=== PATIENT | female | born 1930 | race Hispanic/Latino ===

== ENCOUNTER 2016-08-16 10:44 | Inpatient (IN) | payer MEDICARE ==
--- NOTE | 2016-08-16 10:57 | ED PDOC ---
Arrival/HPI - General Time Seen by Provider: 08/16/16 10:55 - History of Present Illness Narrative History of Present Illness (Text): 08/16/16 10:57 Past Medical History - Past History Past History: No Previous - Infectious Disease Hx of Infectious Diseases: None - Tetanus Immunization Tetanus Immunization: Unknown - Cardiac Hx Hypertension: Yes - Pulmonary Hx Chronic Obstructive Pulmonary Disease (COPD): Yes - Neurological Hx Paralysis: No - HEENT Hx Cataracts: Yes (rt eye) - Hematological/Oncological Hx Blood Transfusions: Yes Hx Blood Transfusion Reaction: No - Musculoskeletal/Rheumatological Hx Falls: Yes - Gastrointestinal Hx Gastrointestinal Disorders: Yes Other/Comment: hx ulcerative colitis - Psychiatric Hx Substance Use: No Other/Comment: dementia - Anesthesia Hx Anesthesia Reactions: No Hx Malignant Hyperthermia: No - Suicidal Assessment Feels Threatened In Home Enviroment: No Family/Social History Smoking Status: Former Smoker Hx Alcohol Use: No Hx Substance Use: No Allergies/Home Meds Allergies/Adverse Reactions: Allergies Penicillins Allergy (Verified 01/28/16 10:32) RASH Home Medications: Home Meds Medication Instructions Recorded Confirmed Atenolol 50 mg PO [facility] 11/11/11 08/26/14 Atorvastatin Calcium 40 mg PO 11/11/11 08/26/14 Bimatoprost [Lumigan] 1 drop RIGHTEYE QA 11/11/11 08/26/14 Buspirone Hydrochloride [Buspar] 15 mg PO BID 11/11/11 08/26/14 Donepezil Hydrochloride 10 mg PO 11/11/11 08/26/14 Mesalamine [Lialda] 4 tab PO DAILY 11/11/11 08/26/14 Niacin [Niaspan] 500 mg PO 11/11/11 08/26/14 Vit B12/Lmefolate Ca/Vit B6/B2 1 tab PO HS 11/11/11 08/26/14 [Cerefolin Caplet] Aspirin 81 mg PO HS 02/14/14 08/26/14 Dextromethorphan HBr/Quinidine 1 cap PO BID 02/14/14 08/26/14 [Nuedexta 20-10 mg Capsule] Escitalopram [Lexapro] 20 mg PO HS 02/14/14 08/26/14 Memantine [Namenda] 28 mg PO BID 06/12/14 08/26/14 Fluconazole [Diflucan] 100 mg PO DAILY 07/31/14 08/26/14 Omeprazole 40 mg PO DAILY 07/31/14 08/26/14 Medical Decision Making ED Course and Treatment: 08/16/16 10:57 Disposition/Present on Arrival - Present on Arrival History of DVT/PE: No History of Uncontrolled Diabetes: No Urinary Catheter: No History Surgical Site Infection Following: None
[2016-08-16 11:01] VITALS: BMI 20.7
[2016-08-16] MEDS ORDERED: Vancomycin 1gm in NS 250ml 250 ML IVPB STA (11:20)
[2016-08-16] MEDS ORDERED: Sodium Chloride 0.9% 1,000 ML IV ONE (11:20)
--- NOTE | 2016-08-16 12:15 | RAD ---
HISTORY: Sepsis Patient COMPARISON: 08/26/2014 FINDINGS: LUNGS: Ill-defined opacity in the upper right lincoln thorax and right parahilar. Suspicious for pneumonia. No other abnormal opacity elsewhere. PLEURA: No significant pleural effusion identified, no pneumothorax apparent. CARDIOVASCULAR: Normal. OSSEOUS STRUCTURES: No significant abnormalities. VISUALIZED UPPER ABDOMEN: Normal. OTHER FINDINGS: None. IMPRESSION: Opacity right upper lincoln thorax and right parahilar region. Suspicious for pneumonia.
[2016-08-16] MEDS ORDERED: cefTRIAXone 1 gm 100 ML IV STA (12:26)
--- NOTE | 2016-08-16 12:32 | ED PDOC ---
Arrival/HPI - General Chief Complaint: Weakness/Neurological Deficit Time Seen by Provider: 08/16/16 10:55 Historian: Patient, Other (Civilian Technician/Roommate) - History of Present Illness Narrative History of Present Illness (Text): 08/16/16 12:28 86-year-old female with a past medical history that includes dementia, ulcerative colitis, coronary artery disease, and depression presents the emergency department with fever and generalized weakness for one day. Patient's director of orthopedics/roommate states that she has a history of dementia, but is acting appropriately and is at her baseline mental status at this time. Patient denies any chest pain or shortness of breath. No other complaints. Time/Duration: 24 hours Symptom Onset: Gradual Symptom Course: Unchanged Modifying Factors (Text): None Associated Symptoms (Text): None Past Medical History - Provider Review Nursing Documentation Reviewed: Yes - Past History Past History: No Previous - Infectious Disease Hx of Infectious Diseases: None - Tetanus Immunization Tetanus Immunization: Unknown - Reproductive Menopause: Yes - Cardiac Hx Cardiac Disorders: Yes Hx Hypertension: Yes - Pulmonary Hx Chronic Obstructive Pulmonary Disease (COPD): Yes - Neurological Hx Neurological Disorder: Yes Hx Dementia: Yes Hx Paralysis: No - HEENT Hx Cataracts: Yes (rt eye) - Hematological/Oncological Hx Blood Transfusions: Yes Hx Blood Transfusion Reaction: No - Musculoskeletal/Rheumatological Hx Falls: Yes - Gastrointestinal Hx Gastrointestinal Disorders: Yes Other/Comment: hx ulcerative colitis - Psychiatric Hx Substance Use: No Other/Comment: dementia - Anesthesia Hx Anesthesia Reactions: No Hx Malignant Hyperthermia: No - Suicidal Assessment Feels Threatened In Home Enviroment: No Family/Social History - Physician Review Nursing Documentation Reviewed: Yes Family/Social History: Unknown Family HX Smoking Status: Former Smoker Hx Alcohol Use: No Hx Substance Use: No Allergies/Home Meds Allergies/Adverse Reactions: Allergies Penicillins Allergy (Verified 08/16/16 11:06) RASH Home Medications: Home Meds Medication Instructions Recorded Confirmed Atenolol 50 mg PO QAM 11/11/11 08/26/14 Atorvastatin Calcium 40 mg PO 11/11/11 08/26/14 Bimatoprost [Lumigan] 1 drop RIGHTEYE QAM 11/11/11 08/26/14 Buspirone Hydrochloride [Buspar] 15 mg PO BID 11/11/11 08/26/14 Donepezil Hydrochloride 10 mg PO 11/11/11 08/26/14 Mesalamine [Lialda] 4 tab PO DAILY 11/11/11 08/26/14 Niacin [Niaspan] 500 mg PO HS 11/11/11 08/26/14 Vit B12/Lmefolate Ca/Vit B6/B2 1 tab PO HS 11/11/11 08/26/14 [Cerefolin Caplet] Aspirin 81 mg PO HS 02/14/14 08/26/14 Dextromethorphan HBr/Quinidine 1 cap PO BID 02/14/14 08/26/14 [Nuedexta 20-10 mg Capsule] Escitalopram [Lexapro] 20 mg PO HS 02/14/14 08/26/14 Memantine [Namenda] 28 mg PO BID 06/12/14 08/26/14 Fluconazole [Diflucan] 100 mg PO DAILY 07/31/14 08/26/14 Omeprazole 40 mg PO DAILY 07/31/14 08/26/14 Review of Systems - Review of Systems Systems not reviewed;Unavailable: Dementia Physical Exam - Physical Exam Narrative Physical Exam (Text): Physical exam Patient appears age appropriate in no distress, speaking full sentences without difficulty - Systems Exam Head: Present: Atraumatic, Normocephalic Pupils: Present: PERRL Extroacular Muscles: Present: EOMI Conjunctiva: Present: Normal Mouth: Present: Moist Mucous Membranes Neck: Present: Normal Range of Motion. No: MIDLINE TENDERNESS, Paraspinal Tenderness Respiratory/Chest: Present: Clear to Auscultation, Good Air Exchange. No: Respiratory Distress, Accessory Muscle Use, Tachypneic Cardiovascular: Present: Regular Rate and Rhythm, Normal S1, S2, Peripheal Pulses Present. No: Murmurs Abdomen: Present: Normal Bowel Sounds. No: Tenderness, Distention, Peritoneal Signs, Rebound, Guarding Back: Present: Normal Inspection. No: Midline Tenderness, Paraspinal Tenderness Upper Extremity: Present: Normal Inspection. No: Cyanosis, Edema Lower Extremity: Present: Normal Inspection. No: Edema Neurological: Present: GCS=15, Speech Normal, cranial nerves II through XII fully intact with no cerebellar abnormality, neurosensory fully intact. No focal neurological deficits. Skin: Present: Warm, Dry, Normal Color. No: Rashes Lymphatic: Present: OX3, NI, NC Psychiatric: Present: Alert, not agitated Vital Signs Reviewed: Yes Vital Signs Temp Pulse Resp BP Pulse Ox 08/16/16 13:59 97 H 16 144/79 97 08/16/16 12:41 98 F 86 30 H 136/64 99 08/16/16 11:01 102.9 F H 110 H 20 161/86 H 97 Temperature: Febrile Blood Pressure: Hypertensive Pulse: Tachycardic Respiratory Rate: Normal Appearance: Positive for: Non-Toxic, Comfortable Pain Distress: None Mental Status: No: Agitated, Lethargic Medical Decision Making ED Course and Treatment: 08/16/16 12:30 Elderly female with fever and weakness. No acute findings on physical examination. Patient is febrile and hypertensive, with no focal neurological deficits. Differential includes but not limited to: Pneumonia versus UTI versus influenza Prior visits: Patient's previous medical records reviewed. Patient was seen in August 2014 for confusion and multiple falls and admitted for rhabdo. Patient's chest x-ray shows no cardiomegaly, no effusions. Right upper lobar infiltrate noted. Interpreted by me. EKG interpreted by ER physician. Normal sinus. No ST-segment elevations. Normal intervals. Fluids and antibiotics ordered. Patient will be admitted for IV antibiotics and further evaluation. 08/16/16 13:46 seen in the ER by Dr. Rosas, agrees with tele admission pt in no resp distress, RR not 30, aware of and agrees with plan 08/16/16 14:35 pt has positive troponin, denies cp or sob. EKG has no changes vs previous asa ordered Dr. Lo contacted, awaiting callback 08/16/16 14:[address] Rhodes, plan for asa and lovenox - Lab Interpretations Lab Results: 08/16/16 12:40 08/16/16 13:22 Lab Results 08/16/16 13:22: Sodium 141, Potassium 3.1 L, Chloride 109, Carbon Dioxide 20 L, Anion Gap 15, BUN 11, Creatinine 0.7, Est GFR ( Amer) > 60, Est GFR (Non- Af Amer) > 60, Random Glucose 80, Calcium 8.2 L, Phosphorus 2.5, Magnesium 1.2 L , Total Bilirubin 0.8, AST 24, ALT 12, Alkaline Phosphatase 86, Troponin I 0.61 H* D, Total Protein 6.1, Albumin 3.3, Globulin 2.8, Albumin/Globulin Ratio 1.2 08/16/16 12:46: PT 10.9, INR 1.01, APTT 28.5 08/16/16 12:40: WBC 14.0 H D, RBC 3.29 L, Hgb 11.3 L, Hct 33.7 L, MCV 102.4, MCH 34.3, MCHC 33.5, RDW 13.9, Plt Count 231, MPV 10.1, Gran % 88.4 H, Lymph % ( Auto) 4.4 L, Humphreys % (Auto) 7.1 H, Eos % (Auto) 0.0 L, Baso % (Auto) 0.1, Gran # 12.38 H, Lymph # 0.6 L, Humphreys # 1.0 H, Eos # 0.0, Baso # 0.02 08/16/16 12:38: pO2 50, VBG pH 7.33, VBG pCO2 37.0 L, VBG HCO3 19.5 L, VBG Total CO2 20.6 L, VBG O2 Sat (Calc) 87.5 H, VBG Base Excess -5.8 L, VBG Potassium 3.2 L, Glucose 93, Lactate 1.1, FiO2 21.0, Sodium 143.0, Chloride 110.0 H, Venous Blood Potassium 3.2 L - RAD Interpretation Radiology Orders: 08/16/16 11:20 CHEST PORTABLE [RAD] Stat - Medication Orders Current Medication Orders: Acetaminophen (Tylenol 325mg Tab) 650 mg PO Q6H PRN PRN Reason: Fever >100.5 F Enoxaparin Sodium (Lovenox) 50 mg SC STAT STA PRN Reason: Protocol Stop: 08/16/16 14:40 Magnesium Sulfate 2 gm/ Sodium (Chloride) 104 mls @ 102 mls/hr IVPB ONCE ONE Stop: 08/16/16 15:33 Discontinued Medications Acetaminophen (Tylenol 325mg Tab) 975 mg PO ONCE PRN PRN Reason: Fever >100.4 F Stop: 08/16/16 11:21 Aspirin (Aspirin Chewable) 324 mg PO STAT STA Stop: 08/16/16 14:33 Sodium Chloride (Sodium Chloride 0.9%) 1,000 mls @ 2,000 mls/hr IV .Q30M ONE Stop: 08/16/16 11:49 Last Admin: 08/16/16 12:43 Dose: 2,000 MLS/HR eMAR Start Stop Document 08/16/16 12:43 HI (Rec: 08/16/16 12:43 AL [id number]) Intravenous Solution Start Date 08/16/16 Start Time 12:43 Vancomycin HCl (Vancomycin 1gm) 250 mls @ 167 mls/hr IVPB STAT STA PRN Reason: Protocol Stop: 08/16/16 12:49 Last Admin: 08/16/16 12:43 Dose: 167 MLS/HR eMAR Start Stop Document 08/16/16 12:43 HI (Rec: 08/16/16 12:43 HI [id number]) Intravenous Solution Start Date 08/16/16 Start Time 12:43 Ceftriaxone Sodium (Rocephin 1 Gram Ivpb) 100 mls @ 200 mls/hr IV STAT STA PRN Reason: Protocol Stop: 08/16/16 12:55 Last Admin: 08/16/16 14:33 Dose: 200 MLS/HR eMAR Start Stop Document 08/16/16 14:33 HI (Rec: 08/16/16 14:33 HI [id number]) Intravenous Solution Start Date 08/16/16 Start Time 14:33 Potassium Chloride (K-Dur 20 Meq Er Tab) 40 meq PO STAT STA Stop: 08/16/16 14:33 - Scribe Statement The provider has reviewed the documentation as recorded by the Giana Nino Provider Scribe Attestation: All medical record entries made by the Giana were at my direction and personally dictated by me. I have reviewed the chart and agree that the record accurately reflects my personal performance of the history, physical exam, medical decision making, and the department course for this patient. I have also personally directed, reviewed, and agree with the discharge instructions and disposition. Disposition/Present on Arrival - Present on Arrival Any Indicators Present on Arrival: No History of DVT/PE: No History of Uncontrolled Diabetes: No Urinary Catheter: No History of Decub. Ulcer: No History Surgical Site Infection Following: None - Disposition Have Diagnosis and Disposition been Completed?: Yes Diagnosis: Pneumonia Disposition: HOSPITALIZED Disposition Time: 12:32 Patient Plan: Admission Patient Problems: Current Active Problems Problem Status Diagnosed Pneumonia Acute Condition: FAIR
[2016-08-16 12:49] LABS: ADD MANUAL DIFF? NO
[2016-08-16 12:50] LABS: VENOUS BLOOD GAS BASE EXCESS -5.8 mmol/L (0.0-2.0); VENOUS BLOOD PH 7.33 (7.32-7.43)
[2016-08-16 12:53] LABS: BASO # 0.02 K/mm3 (0.0-2.0); BASO % 0.1 % (0.0-3.0); GRAN # 12.38 (1.4-6.5); GRAN % 88.4 % (50.0-68.0); HEMATOCRIT 33.7 % (36.0-48.0); LYMPH # 0.6 (1.2-3.4); LYMPH % 4.4 % (22.0-35.0); MEAN CELL VOLUME 102.4 fL (80.0-105.0); MEAN CORPUSCULAR HEMOGLOBIN 34.3 pg (25.0-35.0); MEAN CORPUSCULAR HGB CONC 33.5 g/dl (31.0-37.0); MEAN PLATELET VOLUME 10.1 fl (7.0-11.0); MONO % 7.1 % (1.0-6.0); PLATELET COUNT 231 10^3/uL (120.0-450.0); RED CELL DISTRIBUTION WIDTH 13.9 % (11.5-14.5)
[2016-08-16 13:04] LABS: INR 1.01 (0.93-1.08); PARTIAL THROMBOPLASTIN TIME 28.5 Seconds (23.7-30.8)
[2016-08-16 13:43] LABS: ALB/GLOB RATIO 1.2 (1.1-1.8); ALKALINE PHOSPHATASE 86 U/L (38-133); ALT/SGPT 12 U/L (7-56); AST/SGOT 24 U/L (15-39); BILIRUBIN,TOTAL 0.8 mg/dL (0.2-1.3); BLOOD UREA NITROGEN 11 mg/dL (7-21); CALCIUM 8.2 mg/dL (8.4-10.5); CARBON DIOXIDE 20 mmol/L (21-33); CHLORIDE 109 mmol/L (95-110); GFR AFRICAN-AMERICAN > 60; GLUCOSE,RANDOM 80 mg/dL (70-110); MAGNESIUM 1.2 mg/dL (1.7-2.2); PHOSPHOROUS 2.5 mg/dL (2.5-4.5); POTASSIUM 3.1 mmol/L (3.6-5.0); SODIUM 141 mmol/L (132-148); TOTAL PROTEIN 6.1 g/dL (5.8-8.3)
[2016-08-16 14:24] LABS: TROPONIN I 0.61 ng/mL
[2016-08-16 14:29] LABS: URINE BILIRUBIN SMALL (NEGATIVE); URINE BLOOD NEGATIVE (NEGATIVE); URINE GLUCOSE (UA) NEGATIVE (NEGATIVE); URINE KETONE 40 mg/dL (NEGATIVE); URINE LEUKOCYTE ESTERASE TRACE Leu/uL (NEGATIVE); URINE PROTEIN 100 mg/dL (<30 mg/dL); URINE UROBILINOGEN 0.2 E.U./dL (<1 E.U./dL)
[2016-08-16 14:30] LABS: URINE APPEARANCE TURBID (CLEAR); URINE COLOR YELLOW (YELLOW)
[2016-08-16] MEDS ORDERED: Potassium Chloride 20 mEq ER Tab PO STA (14:32)
[2016-08-16] MEDS ORDERED: Magnesium Sulfate 2 GM in Sodium Chloride 0.9% 100 ML IVPB ONE (14:32)
[2016-08-16] MEDS ORDERED: Enoxaparin 60 mg Syringe SC STA (14:39)
[2016-08-16 14:49] LABS: URINE BACTERIA MANY (NEG); URINE RBC NEGATIVE /hpf (0-2)
[2016-08-16] MEDS ORDERED: Iodixanol 320 MG/ML 100 ML BOTTLE IV ONE (14:50)
--- NOTE | 2016-08-16 15:06 | CARD ---
APPROVED REPORT EKG Measurement Heart [id number] <Conclusion> Normal sinus rhythm Nonspecific T wave abnormality Abnormal ECG
--- NOTE | 2016-08-16 15:50 | CT ---
PROCEDURE: CT Chest with contrast (Pulmonary Angiogram) HISTORY: r/o PE COMPARISON: None available. TECHNIQUE: Axial computed tomography images were obtained of the chest in the pulmonary arterial phase of enhancement. Coronal and sagittal reformatted images were created and reviewed. Intravenous contrast dose: 100 cc of Visipaque Radiation dose: Total exam DLP = 262 mGy-cm. FINDINGS: PULMONARY ARTERIES: Unremarkable. No pulmonary embolism. AORTA: No acute findings. No thoracic aortic aneurysm. LUNGS: There is a dense infiltrate in the right upper lobe consistent with pneumonia. There is a patchy infiltrate in the right lower lobe. The left lung is clear PLEURAL SPACES: Unremarkable. No effusion or pneuomothorax. HEART: Unremarkable. No cardiomegaly. No significant pericardial effusion. LYMPH NODES: No lymphadenopathy. BONES, CHEST WALL: Unremarkable. No fracture or destructive lesion OTHER FINDINGS: There is a small hiatal hernia IMPRESSION: Right upper lobe pneumonia. No evidence of pulmonary embolus
[2016-08-16] MEDS ORDERED: Potassium Chloride 20 mEq/15 ml LIQ UD PO ONE (18:00)
[2016-08-16] MEDS ORDERED: Albuterol-Ipratrop 3 mg / 0.5 (3 ml) UD IH PRN (18:45)
[2016-08-16] MEDS: Albuterol-Ipratrop 3 mg / 0.5 (3 ml) UD IH SCH (19:56)
[2016-08-16] MEDS: Latanoprost 2.5 ml Opht Soln OD SCH (21:31)
[2016-08-16] MEDS: MethylPREDNISolone 40 mg Vial IV SCH (21:31)
[2016-08-16] MEDS: Enoxaparin 60 mg Syringe SC SCH (21:31)
[2016-08-16] MEDS ORDERED: Non Formulary Medication (Aspirin [Aspirin] 81 MG) PO SCH (22:00)
[2016-08-17] MEDS: Albuterol-Ipratrop 3 mg / 0.5 (3 ml) UD IH SCH ×4 (01:25→19:40)
--- NOTE | 2016-08-17 05:49 | HP ---
HISTORY OF PRESENT ILLNESS: The patient is an 86-year-old known to me from previous admission. Came to Emergency Room because of not feeling well and tired. Her best friend who lives with her found h er soaking wet in her sweat. Has been coughing scanty the last few days, so she [facility]. Denies any nausea or vomiting. Does complain of poor appetite. N o hemoptysis, no hematemesis. PAST MEDICAL HISTORY: Significant for: 1. Mild dementia. 2. Ulcerative colitis 3. Coronary artery disease. 4. History of depression. The patient was being treated as outpatient with antibiotic but did not r ecover 100%. 5. Her past medical history is also significant for hypertension. 6. Chronic obstructive pulmonary disease. 7. History of candidiasis esophagitis. ALLERGIES: SHE IS ALLERGIC TO PENICILLIN. MEDICATIONS AT HOME: She is on: 1. Alta. 2. Ferrous sulfate. 3. Aspirin 81 daily. 4. Tenormin 50 mg daily. 5. Namzaric. 6. Atorvastatin. 7. Niacin. 8. Omeprazole. 9. Lumigan. 10. Lexapro 20 mg at bedtime. 11. Nuedexta. 12. ____. 13. Lialda. SOCIAL HISTORY: History of smoking in the remote past. Denies alcohol use. Currently, she is livin g with her friend. REVIEW OF SYSTEMS: Significant for bilateral eye redness, scanty cough, having fever and chills. PHYSICAL EXAMINATION: VITAL SIGNS: She is afebrile, pulse 76, respirations 20, blood pressure 130/59. LUNGS: Bilateral fair airflow. A few soft crackles in the upper lung region, more so on the right. HEART: S1, S2 audible. No murmur. ABDOMEN: Soft, nontender, no rebound, no guarding. NEUROLOGIC: The patient is awake and alert, communicative. LABORATORY DATA: WBC is 14, hemoglobin 11.3, hematocrit 33.7, platelet 231. Chemistry: Sodium 141, potassium 3.1, chloride 109, CO2 20, BUN 11, creatinine 0.7, blood sugar of 80. LFTs are within nor mal limits. Magnesium 1.2. Troponin 0.61, procalcitonin is 2.88. Urine shows small bilirubin, trac e leukocyte. CT scan of the chest shows right upper lobe pneumonia. ASSESSMENT: 1. Right upper lobe infiltrate, community acquired. 2. Tro-EQ-ipvkllcwv myocardial infarction. 3. Dementia. 4. Hypertension. 5. Hyperlipidemia. 6. Deconditioning. 7. History of depression. PLAN: The patient will be admitted on telemetry. Will start her on her usual medication. Continue her on nebulizer treatment, aspirin 81 daily, isosorbide 30 mg daily. Potassium has been supplemente d. Will continue her on Lexapro. She is on Lovenox 50 mg q. 12. Magnesium has been supplemented. I will continue her on usual medications. She has been started on Zithromax. Echocardiogram will be done in the a.m. I will also order for TobraDex eyedrops. Will reevaluate the patient in the a.m. Jean-Claude Rosas MD cc: [id number] TT: 08/17/2016 05:49:05 al
[2016-08-17] MEDS: Pantoprazole 40 mg EC Tab PO SCH (05:52)
[2016-08-17] MEDS: Enoxaparin 60 mg Syringe SC SCH ×3 (06:04→18:33)
[2016-08-17 06:33] LABS: HEMATOCRIT 29.7 % (36.0-48.0); MEAN CELL VOLUME 103.1 fL (80.0-105.0); MEAN CORPUSCULAR HEMOGLOBIN 34.4 pg (25.0-35.0); MEAN CORPUSCULAR HGB CONC 33.3 g/dl (31.0-37.0); MEAN PLATELET VOLUME 10.8 fl (7.0-11.0); PLATELET COUNT 204 10^3/uL (120.0-450.0); RED CELL DISTRIBUTION WIDTH 13.4 % (11.5-14.5); WHITE BLOOD COUNT 13.3 10^3/ul (4.5-11.0)
[2016-08-17 06:35] LABS: ADD MANUAL DIFF? YES
[2016-08-17 06:45] LABS: ALB/GLOB RATIO 1.1 (1.1-1.8); ALKALINE PHOSPHATASE 96 U/L (38-133); ALT/SGPT 10 U/L (7-56); AST/SGOT 27 U/L (15-39); BILIRUBIN,TOTAL 0.7 mg/dL (0.2-1.3); BLOOD UREA NITROGEN 15 mg/dL (7-21); CARBON DIOXIDE 19 mmol/L (21-33); CHLORIDE 111 mmol/L (98-107); CHOLESTEROL 113 mg/dL (130-200); GFR AFRICAN-AMERICAN > 60; GLUCOSE,RANDOM 132 mg/dL (70-110); MAGNESIUM 2.1 mg/dL (1.7-2.2); PHOSPHOROUS 2.3 mg/dL (2.5-4.5); POTASSIUM 4.2 mmol/L (3.6-5.0); SODIUM 141 mmol/L (132-148); TOTAL PROTEIN 6.3 g/dL (5.8-8.3)
--- NOTE | 2016-08-17 08:08 | CON ---
DATE: 08/16/2016 SERVICE: Cardiology. REASON FOR CONSULTATION: Positive troponin, history of coronary artery disease, 1 vessel disease. BRIEF CLINICAL HISTORY: An 86-year-old female with a past medical history significant for ulcerative colitis, coronary artery disease. The patient presented to the Emergency Room with fever and genera lized weakness. Code sepsis was called and the sepsis blood workup was sent along with troponins. Tr oponin came back positive 0.06. Cardiology consult was called. The patient denies any chest pain, de nies any shortness of breath, denies any palpitations. The patient came in with generalized weakness and working diagnosis was pneumonia, sepsis with elevated WBC and x-ray consistent with pneumonia. PAST MEDICAL HISTORY: Significant for hypertension, [id number] myocardial infarction in the past , cardiac catheterization, 1 vessel disease, medical treatment recommended. History of Candidal esop hagitis, dementia, history of coronary artery disease, right vessel occluded. Previous cardiac work up as follows: The patient had a left heart catheterization dated 08/30/2014 that showed 1 vessel dis ease, critical disease involving the RCA, LAD which was total 100% occluded, but very well collateral ized from LAD and circumflex. The patient with history of GI bleed in the past, so medical treatment recommended, ejection fraction 45-50%, range of 12-14 dated 08/30/2014. The patient had echocar diography done also 08/27/2014 that showed normal LV size and function, mild concentric LVH, mild MR, s eptal flattening suggesting RV pressure volume overload, right ventricular systolic pressure at 19. The patient had bilateral carotid duplex on 08/27/2014 that shows 29% proximal ICA stenosis bilaterally , no significant interval change from 09/05/2012, dated 08/27/2014. FAMILY HISTORY: Noncontributory. ALLERGIES: PENICILLIN. SOCIAL HISTORY: Denies any smoking now, quit 50 years ago. CURRENT MEDICATIONS: The patient is taking at home, vitamin B12, , Namenda, Diflucan, Lexapro, Lumigan, atenolol and aspirin. REVIEW OF SYSTEMS: As per HPI. PHYSICAL EXAMINATION: VITAL SIGNS: Temperature afebrile, heart rate 84, blood pressure 148/60. HEENT: PERRLA. Extraocular muscles intact. NECK: Supple. No carotid bruits. No thyromegaly. CHEST: Clear to auscultation. HEART: S1, S2 regular. ABDOMEN: Soft. EXTREMITIES: Clubbing and cyanosis negative. LABORATORY DATA: Blood workup as follows: WBC 14, hemoglobin 11, hematocrit 33.7, platelet count 23 1. Chemistry shows sodium 141, potassium 3.0, chloride 109, carbon dioxide 20 and 15, BUN 11, c reatinine 0.7. Troponin 0.61. IMPRESSION: Right middle lobe pneumonia, hva-IO-obpzazy myocardial infarction, 1-vessel coronary art job disease, probably this positive troponin secondary to hemodynamic instability and 1 vessel ryan ry artery disease, characterized as demand supply mismatch, very well collateralized RCA from LAD and circumflex. RECOMMENDATION: We will start 1 mg/kg q.12 Lovenox as renal function is normal, beta saul, aspir in. Further recommendation hospital course. We will follow the CPK. Trend of the troponin; if tren d is down, we will just treat medically. If the trend is up, then we will decide to intervene versus medical treatment. We will follow with you. I explained to the patient we will put low dose of Imd ur as the blood pressure is tolerated. Thank you, Dr. Rosas, for providing the opportunity in taking care of the patient. Last time inter vention was not done, complex intervention because of the RCA was the patient cannot tolerate du al antiplatelet therapy based on history of GI bleed and dementia, so will follow the same guideline in the future workup. Steve Lo MD cc: [id number] TT: 08/17/2016 06:07:35 Confirmation # [id number] Dictation # [id number] tn
[2016-08-17] MEDS: MethylPREDNISolone 40 mg Vial IV SCH ×2 (09:19→22:22)
[2016-08-17] MEDS: cefTRIAXone 1 gm 100 ML IVPB SCH (09:21)
[2016-08-17] MEDS: Azithromycin 500MG/NS 250ml 250 ML IVPB SCH (09:21)
[2016-08-17 09:22] LABS: BAND 2 % (0-2); NEUTROPHIL 92 % (50.0-70.0)
[2016-08-17 09:23] LABS: ANISOCYTOSIS 1+; HYPOCHROMIA 1+; PLATELET ESTIMATE NORMAL (NORMAL); POIKILOCYTOSIS SLIGHT; POLYCHROMASIA SLIGHT
[2016-08-17 09:24] LABS: TOXIC GRANULATION SLIGHT
[2016-08-17] MEDS: LIALDA 1.2 GM PO SCH (09:30)
[2016-08-17] MEDS: Tobramycin 0.3% OPHT SOLN OU SCH ×3 (10:49→18:31)
--- NOTE | 2016-08-17 11:15 | PN ---
DATE: 08/17/2016 REASON FOR CONSULTATION AND FOLLOWUP: Positive troponin, history of coronary artery disease, 1 vesse l disease, admitted with sepsis, pneumonia. BRIEF CLINICAL HISTORY: An 86-year-old female with a past medical history significant for ulcerative colitis, coronary artery disease who presented to the Emergency Room with fever, generalized weaknes s. Code sepsis was called, septic workup was sent for the blood workup as well as troponin. Troponi n came back 0.6. Cardiac consult was called. The patient denies any chest pain, denies any shortnes s of breath, denies any palpitation, complaining of generalized weakness. The patient started pneumo shravan. CT chest was negative for PE. X-ray consistent with pneumonia. PHYSICAL EXAMINATION: VITAL SIGNS: Temperature afebrile, heart rate 83, blood pressure 136/61. HEENT: PERRLA. Extraocular muscles intact. NECK: Supple. No carotid bruits. No thyromegaly. CHEST: Clear to auscultation. HEART: S1, S2 regular. ABDOMEN: Soft. EXTREMITIES: Clubbing and cyanosis negative. BLOOD WORKUP: As follows: WBC 13.3, hemoglobin 9.9, hematocrit 29.7, platelet count 204. Chemistry shows sodium 141, potassium 4.2, chloride 111, carbon dioxide 19, BUN 15, creatinine 0.8, random sug ar 132, calcium 9, phosphorus 2.3, magnesium 2.3. Troponin 0.05. CPK 94. Total protein 6.3, albumi n 3.3, globulin 3.1, albumin/globulin ratio 1.1. Triglycerides 66, VLDL pending, cholesterol 113, LD L 40, HDL 46. TSH 0.69. Procalcitonin 2.88. IMPRESSION: Sepsis, procalcitonin elevated, WBC elevated, pneumonia, history of non-ST segment myoca rdial infarction in the past, history of cardiac catheterization, 1-vessel coronary artery disease, m edical treatment recommended, right coronary artery totally occluded, history of candidal esophagitis , history of dementia, last catheterization 08/30/2014 shows 1-vessel coronary artery disease, right c oronary artery which is very complex, totally occluded, very well collateralized from left anterior d escending and circumflex. Medical treatment recommended. History of gastrointestinal bleed. Last e cho 08/27/2014 shows normal function, mild concentric left ventricular hypertrophy, septal flattening c onsistent with right ventricular pressure, volume overload, right ventricular systolic pressure was e levated, right ventricular pressure reported as 19. Bilateral carotid duplex 08/27/2014 and 29% proxim al ICA stenosis noted. No significant interval change from 09/05/2012. Last one was dated 08/27/2014. This troponin positive secondary to hemodynamic instability and stress and strain. Doubt it is real myocardial infarction, though patient has underlying 1 coronary artery disease and is probably most likely demand and supply and stripping the supply from the demand because of underlying sepsis elevated. RECOMMENDATION: At this point, we will try to treat medically. From cardiology point of view, contin ue beta-saul, continue nitrate, continue Lovenox. Follow the trend. If the trend remains trendin g down, we will discontinue telemetry tomorrow. In the interim, continue treatment for sepsis. We w ill send stool guaiac because of drop in 1 gram of hemoglobin. We will follow with you. Thank you, Dr. Rosas, for providing the opportunity in taking care of the patient. So far, no plan s for invasive cardiac workup at this time, unless patient's condition changes. We will get echo to assess LV function. We will follow with you. Steve Lo MD cc: [id number] TT: 08/17/2016 11:14:24 Confirmation # [id number] Dictation # [id number] kiki
--- NOTE | 2016-08-17 12:53 | CARD ---
APPROVED REPORT EXAM: Two-dimensional and M-mode echocardiogram with Doppler and color Doppler. INDICATION LV Function:SystolicDiastolic Chest Pain 2D DIMENSIONS Left Atrium (2D)4.6 (1.6-4.0cm)IVSd1.1 (0.7-1.1cm) LVDd4.4 (3.9-5.9cm)LVOT Diameter1.8 (1.8-2.4cm) PWd1.1 (0.7-1.1cm)LVDs3.3 (2.5-4.0cm) FS (%) 25.2 %LVEF (%)50.0 (>50%) M-Mode DIMENSIONS Aortic Root2.80 (2.2-3.7cm)Aortic Cusp Exc.1.00 (1.5-2.0cm) Aortic Valve AoV Peak Iugaultt634.0cm/sAoV VTI60.1cmAO Peak GR.28mmHg LVOT Peak Tycmnziv05.0cm/sLVOT VTI21.10cmAO Mean GR.15mmHg STACIE (VMAX)0.83qq8PNE (VTI)0.89cm2 Mitral Valve MV E Nvyiawcj31.3cm/sMV A Opeowoxd87.3cm/sE/A ratio1.0 TDI Lateral E' Peak V7.51cm/sMedial E' Peak V7.80cm/sE/Lateral E'12.6 E/Medial E'12.1 Pulmonary Valve PV Peak Gzlltaps00.6cm/sPV Peak Grad.2mmHg Tricuspid Valve TR Peak Uhaaesdd016xg/sRAP TPYRFNPL50jjVzEH Peak Gr.17mmHg VDWC12pfGc LEFT VENTRICLE The left ventricle is normal size. There is normal left ventricular wall thickness. The left ventricular function is normal. There is normal LV segmental wall motion. Transmitral Doppler flow pattern is Grade II-pseudonormal filling dynamics. No left ventricle thrombus noted on this study. There is no ventricular septal defect visualized. There is no left ventricular aneurysm. There is no mass noted in the left ventricle. RIGHT VENTRICLE The right ventricle is normal size. There is normal right ventricular wall thickness. The right ventricular systolic function is normal. ATRIA The left atrium is mildly dilated. The right atrium size is normal. The interatrial septum is intact with no evidence for an atrial septal defect. AORTIC VALVE The aortic valve is calcified and displays decreased opening. The aortic valve is moderately sclerotic. There is trace aortic regurgitation. There is moderate valvular aortic stenosis. There is no aortic valvular vegetation. MITRAL VALVE The mitral valve is thickened but opens well. Mitral regurgitation is trace. There is no mitral valve stenosis. There is no evidence of mitral valve prolapse. TRICUSPID VALVE The tricuspid valve leaflets are thickened , but open well. There is mild tricuspid regurgitation.RVSP-27 mmof h g. There is no tricuspid valve stenosis. There is no tricuspid valve prolapse or vegetation. PULMONIC VALVE The pulmonic valve is borderline thickened. There is trace pulmonic valvular regurgitation. There is no pulmonic valvular stenosis. GREAT VESSELS The aortic root is normal in size. The ascending aorta is normal in size. The pulmonary artery is normal. The IVC is normal in size and collapses >50% with inspiration. PERICARDIAL EFFUSION There is no pleural effusion. There is a trace pericardial effusion. <Conclusion> The left ventricle is normal size. There is normal left ventricular wall thickness. The left ventricular function is normal. There is trace aortic regurgitation. There is moderate valvular aortic stenosis. Mitral regurgitation is trace. There is mild tricuspid regurgitation.RVSP-27 mmof h g. The IVC is normal in size and collapses >50% with inspiration. There is a trace pericardial effusion. No Thrombus or Vegetation.
[2016-08-17] MEDS: Latanoprost 2.5 ml Opht Soln OD SCH (22:22)
--- NOTE | 2016-08-17 22:32 | PN ---
DATE: 08/17/2016 SUBJECTIVE: The patient is an 86-year-old, seen and examined, seems to be doing a little better, sti ll has cough and congestion. No fever or chills noted. PHYSICAL EXAMINATION: VITAL SIGNS: She is afebrile, pulse 81, respirations 20, blood pressure 112/60. LUNGS: Bilateral soft crackle in the right upper lung region and in bases, no rhonchi. HEART: S1, S2 audible with systolic murmur. ABDOMEN: Soft, nontender, no rebound, no guarding. NEUROLOGIC: She is awake and alert, somewhat forgetful. EXTREMITIES: Bilateral legs, no edema. She does have significant spider veins. LABORATORY EXAMINATION: WBC is 13.3, hemoglobin 9.9, hematocrit 29.7, platelets 204. Chemistry: So dium 141, potassium 4.2, chloride 111, CO2 of 19, BUN 15, creatinine 0.8, blood sugar 132. LFTs are within normal limits. Second troponin 0.50 and procalcitonin is 2.88. Urinalysis shows small biliru bin and positive protein. Her urine culture shows gram-positive cocci. Blood cultures are negative. Stool for C. diff is unremarkable. ASSESSMENT AND PLAN: 1. Right upper lobe pneumonia. 2. Non-ST elevation myocardial infarction, probably troponin secondary to demand ischemia as p er cardiology input. 3. History of chronic obstructive pulmonary disease. 4. History of smoking. 5. Chronic anemia. 6. Trace aortic regurg, moderate aortic stenosis, trace mitral regurg with tricuspid regurg. PLAN: We will continue the patient on current antibiotic, nebulizer treatment. Continue her on aspi rin, isosorbide, and we will follow up her CBC, CMP and troponin in a.m. Currently, she is on Loveno x 50 mg q. 12. We will continue her on Protonix. She is receiving Rocephin and Zithromax, will cont inue that. We will request for physical therapy evaluation, and if the patient remains stable, we wi ll discontinue telemetry in a.m. Jean-Claude Rosas MD cc: [phone] TT: 08/17/2016 22:32:04 Confirmation # [id number] Dictation # [id number] mn
[2016-08-18] MEDS: Albuterol-Ipratrop 3 mg / 0.5 (3 ml) UD IH SCH ×4 (01:08→20:30)
[2016-08-18 06:34] LABS: HEMATOCRIT 29.5 % (36.0-48.0); MEAN CELL VOLUME 99.7 fL (80.0-105.0); MEAN CORPUSCULAR HEMOGLOBIN 33.8 pg (25.0-35.0); MEAN CORPUSCULAR HGB CONC 33.9 g/dl (31.0-37.0); MEAN PLATELET VOLUME 10.5 fl (7.0-11.0); PLATELET COUNT 251 10^3/uL (120.0-450.0); RED CELL DISTRIBUTION WIDTH 14.1 % (11.5-14.5); WHITE BLOOD COUNT 15.9 10^3/ul (4.5-11.0)
[2016-08-18 06:46] LABS: ADD MANUAL DIFF? YES
[2016-08-18 06:52] LABS: ALKALINE PHOSPHATASE 114 U/L (38-133); ALT/SGPT 24 U/L (7-56); AST/SGOT 44 U/L (15-39); BILIRUBIN,TOTAL 0.6 mg/dL (0.2-1.3); BLOOD UREA NITROGEN 19 mg/dL (7-21); CALCIUM 9.2 mg/dL (8.4-10.5); CARBON DIOXIDE 19 mmol/L (21-33); CHLORIDE 110 mmol/L (98-107); GFR AFRICAN-AMERICAN > 60; GLUCOSE,RANDOM 141 mg/dL (70-110); MAGNESIUM 1.9 mg/dL (1.7-2.2); PHOSPHOROUS 2.4 mg/dL (2.5-4.5); POTASSIUM 3.6 mmol/L (3.6-5.0); SODIUM 142 mmol/L (132-148); TOTAL PROTEIN 6.4 g/dL (5.8-8.3)
[2016-08-18] MEDS: Enoxaparin 60 mg Syringe SC SCH (07:03)
[2016-08-18] MEDS: Pantoprazole 40 mg EC Tab PO SCH (07:04)
[2016-08-18 07:08] LABS: TROPONIN I 0.31 ng/mL
[2016-08-18 09:03] LABS: BAND 4 % (0-2); HYPOCHROMIA 1+; NEUTROPHIL 88 % (50.0-70.0); PLATELET ESTIMATE NORMAL (NORMAL); POLYCHROMASIA SLIGHT
--- NOTE | 2016-08-18 09:03 | PN ---
DATE: 08/18/2016 REASON FOR CONSULTATION AND FOLLOWUP: Positive troponin, history of coronary artery disease 1 vessel , admitted with sepsis, pneumonia. BRIEF CLINICAL HISTORY: An 86-year-old female with a past medical history significant for ulcerative colitis, coronary artery disease. Presented to the Emergency Room with fever and generalized weakne ss. Code sepsis was called. Septic workup was sent and the blood was also sent for the troponin. T he first troponin was 2.6, positive. Cardiology consult was called. The patient denies any chest pa in, denies any shortness of breath, denies any palpitation. Complaining of generalized weakness. Th e patient was started on medication for pneumonia. A CT chest was done and was negative for PE. X-r ay was consistent with pneumonia. Troponin is trending down. PHYSICAL EXAMINATION: VITAL SIGNS: Temperature afebrile, heart rate 84, blood pressure 146/69. HEENT: PERRLA. Extraocular muscles intact. NECK: Supple. No carotid bruits. No thyromegaly. CHEST: Clear to auscultation. HEART: S1, S2 regular. ABDOMEN: Soft. EXTREMITIES: Clubbing, cyanosis negative. WBC 15.9, hemoglobin 10, hematocrit 39.5, platelet count 251. Chemistry shows sodium , potassiu m 3.6, chloride of 110, carbon dioxide 19, anion gap of 17, BUN 19, creatinine 0.9. Troponin 0.31. Phosphorus 2.4, magnesium 1.9. IMPRESSION: Hypokalemia, hypophosphatemia, pneumonia, sepsis, coronary artery disease of 1 vessel, c oronary artery disease limited to right coronary artery, status post cardiac catheterization 5, medical treatment recommended, history of gastrointestinal bleed, as mentioned, 1 vessel coronary artery disease, right coronary artery totally occluded, very complex requiring complex intervention, history of gastrointestinal bleed and very well collateralized from left anterior descending and circ umflex, so medical treatment recommended at that time. Bilateral carotid duplex on 08/27/2014 showed 20%-29% proximal internal carotid artery stenosis, no significant interval change from 2012. Last ec ho 08/27/2014 shows normal function. This positive troponin, doubt it is myocardial infarction true. It is probably secondary to hemodynamic instability, sepsis, stress and strain causing the heart to spill some troponin, which the patient has underlying 1 vessel coronary artery disease, very collater alized from left anterior descending and circumflex, and demand-supply mismatch leads to some troponi n and since the patient is asymptomatic, no further increase in troponin, troponin is down, we will t reat medically. The patient had a repeat echocardiography done yesterday that showed normal left carlos tricle thickness, normal left ventricular function, no segmental wall motion abnormality, grade II di astolic dysfunction, trace aortic regurgitation, moderate valvular aortic stenosis, trace mitral regu rgitation, mild tricuspid regurgitation, right ventricular systolic pressure 25, trace pericardial ef fusion, no thrombus or vegetation noted. RECOMMENDATIONS: As mentioned, since the patient is asymptomatic, tough positive troponin, doubt it is true myocardial infarction. It is most likely secondary to sepsis or stress that cases spil l of the troponin, underlying coronary artery disease, 1 vessel disease, so we will treat medically. Continue aggressive treatment for pneumonia, but for the heart point of view, we will start baby asp irin. Continue baby aspirin, continue isosorbide. Continue Lovenox, will change to deep venous thro mbosis prophylaxis, continue beta saul. Consider discontinuing telemetry. We will follow with yo u. No further cardiac workup is planned. Continue aggressive medical treatment. Thank you, Dr. Rosas, for providing us the opportunity in taking care of the patient. Steve Lo MD cc: [phone] TT: 08/18/2016 09:02:22 Confirmation # [id number] Dictation # [id number] en
[2016-08-18 09:04] LABS: ANISOCYTOSIS SLIGHT
[2016-08-18] MEDS: LIALDA 1.2 GM PO SCH (09:44)
[2016-08-18] MEDS: Potassium & Sodium Phosphate PO SCH ×3 (09:49→18:52)
[2016-08-18] MEDS: Enoxaparin 40 mg Syringe SC SCH (09:50)
[2016-08-18] MEDS: MethylPREDNISolone 40 mg Vial IV SCH (09:50)
[2016-08-18] MEDS: cefTRIAXone 1 gm 100 ML IVPB SCH (09:52)
[2016-08-18] MEDS: Azithromycin 500MG/NS 250ml 250 ML IVPB SCH ×2 (09:53→10:08)
[2016-08-18] MEDS: Tobramycin 0.3% OPHT SOLN OU SCH ×3 (09:54→18:53)
--- NOTE | 2016-08-18 12:28 | PN ---
DATE: 08/18/2016 The patient is an 86-year-old, seen and examined lying in bed. Seems to be comfortable. Scanty coug h. No chest pain, no shortness of breath. PHYSICAL EXAMINATION: VITAL SIGNS: She is afebrile, pulse 84, respirations 18, blood pressure 146/69. LUNGS: Bilateral few soft crackles in upper lung region, diffusely decreased breath sounds. HEART: S1, S2 audible. ABDOMEN: Soft, nontender, no rebound, no guarding. NEUROLOGIC: The patient is awake and alert, answers simple questions, but is forgetful. LABORATORY EXAMINATION: WBC is 15.9, hemoglobin 10, hematocrit 29.5, platelet 251. Chemistry: Sodi um 142, potassium 3.6, chloride 110, CO2 19, BUN 19, creatinine 0.9, blood sugar 141. Troponin is 0. 31. Her blood cultures are negative. Urine cultures showing Streptococcus gallolyt/gallolyticus. ASSESSMENT AND PLAN: 1. Community-acquired pneumonia. 2. Urinary tract infection. 3. Demand ischemia and positive troponin. 4. Chronic obstructive pulmonary disease. 5. Hypertension. 6. Chronic anemia. 7. Trace aortic regurgitation. 8. Moderate aortic stenosis. 9. Trace mitral regurgitation. PLAN: The patient is hemodynamically stable. I will discontinue her telemetry. Will get physical t herapy evaluation. Will request for TCU evaluation. If patient is accepted, she can be transferred to TCU to complete her course of antibiotic. Will continue her nebulizer treatment. She is on Lexap ro; will continue that. Continue her on DVT prophylaxis, Protonix, Rocephin and Zithromax. Will ree valuate patient in the a.m. Jean-Claude Rosas MD cc: [phone] TT: 08/18/2016 12:27:26 Confirmation # [id number] Dictation # [id number] mn
[2016-08-18] MEDS: Latanoprost 2.5 ml Opht Soln OD SCH (21:42)
[2016-08-19] MEDS: Pantoprazole 40 mg EC Tab PO SCH (05:57)
[2016-08-19 06:06] VITALS: O2SAT 94
[2016-08-19] MEDS: Albuterol-Ipratrop 3 mg / 0.5 (3 ml) UD IH SCH ×2 (08:02→13:28)
[2016-08-19] MEDS: cefTRIAXone 1 gm 100 ML IVPB SCH (10:01)
[2016-08-19] MEDS: Potassium & Sodium Phosphate PO SCH ×2 (10:07→14:02)
[2016-08-19] MEDS: LIALDA 1.2 GM PO SCH (10:08)
[2016-08-19] MEDS: Enoxaparin 40 mg Syringe SC SCH (10:10)
[2016-08-19] MEDS: Tobramycin 0.3% OPHT SOLN OU SCH ×2 (10:26→13:40)
[2016-08-19] MEDS: Azithromycin 500MG/NS 250ml 250 ML IVPB SCH (10:26)
--- NOTE | 2016-08-19 12:10 | PN ---
DATE: 08/19/2016 The patient is an 86-year-old pleasantly confused, lying in bed, comfortable. No fever, no chills, n o nausea or vomiting, no diarrhea. PHYSICAL EXAMINATION: VITAL SIGNS: Had borderline fever of 99.2 early this morning. Pulse 69, respirations 21, blood pres sure 168/85. LUNGS: Bilateral fair airflow. Few crackles in the upper lung region posteriorly. HEART: S1, S2 audible. ABDOMEN: Soft, nontender. No rebound, no guarding. NEUROLOGIC: The patient is awake and alert, communicative, confused, disoriented. EXTREMITIES: Bilateral legs no edema. LABORATORY EXAMINATION: There is no new lab available today. Her urine culture is positive for Stre ptococcus gallolyt. ASSESSMENT: 1. Community-acquired pneumonia, left upper lobe. 2. Hypertension. 3. Chronic obstructive pulmonary disease. 4. Chronic anemia. 5. Trace aortic regurgitation. 6. Mitral regurgitation. 7. Moderate aortic stenosis. 8. Dementia. 9. Deconditioning, difficulty walking. PLAN: We will continue the patient on current medical regimen. She is on nebulizer treatment. She is getting aspirin 81 daily. She is on isosorbide. Her positive troponin is probably secondary to h ypoxia and tachycardia. We will continue her on Protonix. She is receiving Rocephin, atenolol, and Zithromax. We will continue that. TCU evaluation has been requested, and as soon as bed is open, th e patient will be transferred to TCU to complete her course of antibiotic and receive physical therap y. Jean-Claude Rosas MD cc: [phone] TT: 08/19/2016 12:09:07 Confirmation # [id number] Dictation # [id number] hanh
--- NOTE | 2016-08-19 12:13 | PN ---
DATE: 08/19/2016 REASON FOR CONSULTATION AND FOLLOWUP: Positive troponin, history of coronary artery disease, 1 nadja mi, admitted with pneumonia, sepsis, asymptomatic BRIEF CLINICAL HISTORY: This is an 86-year-old female with a past medical history significant for ul cerative colitis, history of coronary artery disease, status cardiac catheterization, 1-vessel ryan ry artery disease, admitted with pneumonia, sepsis. The patient has borderline mild troponin positiv e, probably secondary to hemodynamic instability underlying coronary artery disease, remained asympto matic. The patient is being treated with IV antibiotics. The patient had CAT scan of the chest done to rule out PE, no evidence of PE. Troponin is trending down, asymptomatic. No chest pain. PHYSICAL EXAMINATION: VITAL SIGNS: Temperature afebrile, heart rate 63, blood pressure 147/62. HEENT: PERRLA. Extraocular muscles intact. NECK: Supple. No carotid bruits. No thyromegaly. CHEST: Clear to auscultation. HEART: S1, S2 regular. ABDOMEN: Soft. EXTREMITIES: Clubbing and cyanosis negative. LABORATORY DATA: Blood workup as follows: WBC 15.9, hemoglobin 10, hematocrit 29.5, platelet count 251. Chemistry shows sodium 142, potassium 3.6, chloride 110, carbon dioxide 19, anion gap of 17, BU N 19, creatinine 0.9. Today's blood workup is not available. IMPRESSION: Pneumonia, sepsis, hemodynamic instability, coronary artery disease, 1 vessel, status po st cardiac catheterization, right coronary artery totally occluded, history of gastrointestinal bleed , history of ulcerative colitis. RECOMMENDATION: Aggressive medical treatment. Repeat the blood workup in the morning. Continue Imd ur, continue beta saul, supplement potassium, continue aspirin. Will not put Plavix because the p atient has history of GI bleed. Continue Tenormin 50 mg twice. We will repeat the blood workup in t he morning. Thank you, Dr. Rosas, for providing us the opportunity in taking care of the patient. We will foll ow with you. No invasive cardiac workup is planned at this time. The patient had a cardiac catheterization 015 which shows 1-vessel CAD, RCA very well collateralized from LAD and circ. Steve Lo MD cc:Jean-Claude Rosas MD [phone] TT: 08/19/2016 12:12:15 Confirmation # [id number] Dictation # [id number] tn
[2016-08-19 13:43] VITALS: BP 146/65; PULSE 64; RESP 19; TEMP 98.7
[2016-08-19] MEDS ORDERED: LIALDA 1.2 GM PO SCH (15:26)
== END 2016-08-19 17:45 | DRG 871 ==
LOC: ED 10:44 → ERH 13:47 → 2RNO 16:23
PROVIDERS: ADMIT Internal Medicine; ATTEND Internal Medicine
DX: A41.9 Sepsis, unspecified organism (principal); J18.9 Pneumonia, unspecified organism; I24.8 Other forms of acute ischemic heart disease; E83.39 Other disorders of phosphorus metabolism; K51.90 Ulcerative colitis, unspecified, without complications; F03.90 Unspecified dementia, unspecified severity, without behavioral disturbance, psychotic disturbance, mood disturbance, and anxiety; N39.0 Urinary tract infection, site not specified; J44.9 Chronic obstructive pulmonary disease, unspecified; E87.6 Hypokalemia; I25.10 Atherosclerotic heart disease of native coronary artery without angina pectoris; I10 Essential (primary) hypertension; D64.89 Other specified anemias; I08.0 Rheumatic disorders of both mitral and aortic valves; I25.2 Old myocardial infarction; Z87.891 Personal history of nicotine dependence

== ENCOUNTER 2016-08-19 18:10 | Inpatient (IN) | payer OTHER, MEDICARE ==
[2016-08-19 20:09] VITALS: BMI 21.0
[2016-08-19] MEDS ORDERED: Albuterol-Ipratrop 3 mg / 0.5 (3 ml) UD IH PRN (20:14)
[2016-08-19] MEDS: Albuterol-Ipratrop 3 mg / 0.5 (3 ml) UD IH SCH (21:44)
[2016-08-19] MEDS: Latanoprost 2.5 ml Opht Soln OD SCH (23:05)
[2016-08-20] MEDS: Albuterol-Ipratrop 3 mg / 0.5 (3 ml) UD IH SCH ×4 (01:40→19:40)
[2016-08-20] MEDS: cefTRIAXone 1 gm 100 ML IVPB SCH (05:16)
[2016-08-20] MEDS: Azithromycin 500MG/NS 250ml 250 ML IVPB SCH (05:17)
[2016-08-20] MEDS: Enoxaparin 40 mg Syringe SC SCH (05:18)
[2016-08-20] MEDS: Pantoprazole 40 mg EC Tab PO SCH (05:18)
[2016-08-20] MEDS: Potassium & Sodium Phosphate PO SCH ×3 (09:27→17:19)
[2016-08-20] MEDS: [UNRECOGNIZED DRUG - OTHER] PO SCH (09:27)
[2016-08-20] MEDS: MESALAMINE PO SCH (09:27)
[2016-08-20] MEDS: Tobramycin 0.3% OPHT SOLN OU SCH ×3 (09:29→17:19)
[2016-08-20] MEDS: Latanoprost 2.5 ml Opht Soln OD SCH (22:11)
[2016-08-21] MEDS: Albuterol-Ipratrop 3 mg / 0.5 (3 ml) UD IH SCH ×4 (01:50→21:30)
[2016-08-21] MEDS: Pantoprazole 40 mg EC Tab PO SCH (05:35)
[2016-08-21] MEDS: Azithromycin 500MG/NS 250ml 250 ML IVPB SCH (05:35)
[2016-08-21] MEDS: Enoxaparin 40 mg Syringe SC SCH (05:35)
[2016-08-21] MEDS: cefTRIAXone 1 gm 100 ML IVPB SCH (05:35)
--- NOTE | 2016-08-21 07:36 | HP ---
HISTORY OF PRESENT ILLNESS: The patient is an 86-year-old who was brought in by a close friend who s he lives with. She was having some cough and congestion. She was having chills. She was drenching in sweats. She was found to have pneumonia and was started on IV antibiotic and nebulizer treatment, seems to be improving. She is currently afebrile. Transferred to TCU to complete her course of ant ibiotic and get physical therapy. PAST MEDICAL HISTORY: She has significant past medical history of: 1. Dementia. 2. . 3. History of coronary artery disease. 4. Chronic obstructive pulmonary disease. 5. Hypertension. 6. Gastritis. ALLERGIES: SHE IS ALLERGIC TO PENICILLIN. MEDICATIONS AT HOME: She is on: 1. Lexapro 20 mg daily. 2. Lumigan eyedrops. 3. Omeprazole 40 mg daily. 4. Atorvastatin. 5. Namzaric. 6. Tenormin 50 mg daily. 7. Aspirin 81 daily. ALLERGIES SHE IS ALLERGIC TO PENICILLIN. SOCIAL HISTORY: She is single, lives with her friend. PHYSICAL EXAMINATION: GENERAL: She is awake and alert, but somewhat confused, disoriented. VITAL SIGNS: She is afebrile, pulse 71, respirations 18, blood pressure 137/71. LUNGS: Bilateral fair airflow, no rhonchi or crackle. HEART: S1, S2 audible. No murmur. ABDOMEN: Soft, nontender, no rebound, no guarding. NEUROLOGIC: She is awake and alert, communicative. LABORATORY EXAM: Blood sugar is 106. ASSESSMENT: 1. Community-acquired pneumonia. 2. Hypertension. 3. Dementia. 4. Hyperlipidemia. 5. History of coronary artery disease. 6. Deconditioning and difficulty walking. PLAN: The patient is being admitted in TCU. We will continue on nebulizer treatment. We will winter nue aspirin 81 daily, isosorbide 30 mg daily. We will continue on Lexapro. She is on DVT prophylaxi s. We will continue her on Rocephin and Zithromax. We will reevaluate the patient in a.m. Jean-Claude Rosas MD cc: [phone] TT: 08/21/2016 07:35:10 mn
[2016-08-21] MEDS: [UNRECOGNIZED DRUG - OTHER] PO SCH (10:34)
[2016-08-21] MEDS: Tobramycin 0.3% OPHT SOLN OU SCH ×3 (10:34→18:39)
[2016-08-21] MEDS: MESALAMINE PO SCH (10:34)
[2016-08-21] MEDS: Potassium & Sodium Phosphate PO SCH ×2 (10:34→14:40)
--- NOTE | 2016-08-21 16:20 | PN ---
DATE: 08/21/2016 SUBJECTIVE: The patient is an 86-year-old, seen and examined, sitting in chair, comfortable, not in any distress. Still complains of scanty cough. PHYSICAL EXAMINATION: VITAL SIGNS: She is afebrile, pulse 71, respirations 18, blood pressure 138/70. LUNGS: Bilateral fair airflow, no rhonchi or crackle. HEART: S1, S2 audible. ABDOMEN: Soft, nontender, no rebound, no guarding. NEUROLOGIC: She is awake and alert, communicative. Ambulates with a walker and assistance. LABORATORY: Blood sugar is 106. ASSESSMENT: 1. Community-acquired pneumonia. 2. Dementia. 3. History of depression. 4. Coronary artery disease. 5. Chronic obstructive pulmonary disease. 6. Peptic ulcer disease. PLAN: Currently, the patient is improving. She is on IV antibiotic. Will continue that. Continue nebulizer treatment. She is on aspirin 81 daily. She is on isosorbide. Continue her on DVT prophyl axis. We will reevaluate this patient in a.m. and make further recommendations. Jean-Claude Rosas MD cc: [phone] TT: 08/21/2016 16:19:38 Confirmation # [id number] Dictation # [id number] kiki
[2016-08-21] MEDS: Latanoprost 2.5 ml Opht Soln OD SCH (21:43)
[2016-08-22] MEDS: Albuterol-Ipratrop 3 mg / 0.5 (3 ml) UD IH SCH ×4 (02:35→21:30)
[2016-08-22] MEDS: cefTRIAXone 1 gm 100 ML IVPB SCH (05:00)
[2016-08-22] MEDS: Azithromycin 500MG/NS 250ml 250 ML IVPB SCH (05:01)
[2016-08-22] MEDS: Pantoprazole 40 mg EC Tab PO SCH (06:03)
[2016-08-22] MEDS: Enoxaparin 40 mg Syringe SC SCH (06:03)
[2016-08-22] MEDS: MESALAMINE PO SCH (10:14)
[2016-08-22] MEDS: [UNRECOGNIZED DRUG - OTHER] PO SCH (10:14)
[2016-08-22] MEDS: Tobramycin 0.3% OPHT SOLN OU SCH ×3 (10:14→18:19)
[2016-08-22] MEDS: Latanoprost 2.5 ml Opht Soln OD SCH (22:31)
[2016-08-23] MEDS: Albuterol-Ipratrop 3 mg / 0.5 (3 ml) UD IH SCH ×4 (02:10→21:33)
[2016-08-23] MEDS: cefTRIAXone 1 gm 100 ML IVPB SCH (05:44)
[2016-08-23] MEDS: Azithromycin 500MG/NS 250ml 250 ML IVPB SCH (05:54)
[2016-08-23] MEDS: Pantoprazole 40 mg EC Tab PO SCH (06:28)
[2016-08-23] MEDS: Enoxaparin 40 mg Syringe SC SCH (06:28)
[2016-08-23] MEDS: Tobramycin 0.3% OPHT SOLN OU SCH ×3 (09:10→18:17)
[2016-08-23] MEDS: MESALAMINE PO SCH (09:10)
[2016-08-23] MEDS: [UNRECOGNIZED DRUG - OTHER] PO SCH (09:10)
[2016-08-23] MEDS: Latanoprost 2.5 ml Opht Soln OD SCH (21:40)
--- NOTE | 2016-08-23 22:39 | PN ---
DATE: 08/23/2016 The patient is an 86-year-old, seen and examined, sitting in chair, seems to be comfortable. No naus ea, vomiting, or diarrhea. PHYSICAL EXAMINATION: VITAL SIGNS: Afebrile, pulse 62, respirations 18, blood pressure 129/67. LUNGS: Bilateral fair airflow, no rhonchi or crackle. HEART: S1, S2 audible. ABDOMEN: Soft, nontender, no rebound, no guarding. NEUROLOGIC: The patient is awake and alert, communicative and ambulates with a walker. ASSESSMENT: 1. Community-acquired pneumonia. 2. Mild dementia. 3. Hypertension. 4. Hyperlipidemia. 5. History of depression. 6. Chronic obstructive pulmonary disease. 7. Peptic ulcer disease. PLAN: Currently, patient is on nebulizer treatment. She is getting Protonix. She is on Rocephin, w ill discontinue that. She is on Zithromax, I will switch it to Levaquin . Encourage physical therapy . Re-evaluate patient in a.m. Jean-Claude Rosas MD cc: [phone] TT: 08/23/2016 22:39:01 Confirmation # [id number] Dictation # [id number] jn
[2016-08-24] MEDS: Albuterol-Ipratrop 3 mg / 0.5 (3 ml) UD IH SCH ×4 (02:14→21:08)
[2016-08-24] MEDS: Enoxaparin 40 mg Syringe SC SCH (05:23)
[2016-08-24] MEDS: Pantoprazole 40 mg EC Tab PO SCH (05:24)
[2016-08-24] MEDS: MESALAMINE PO SCH (10:07)
[2016-08-24] MEDS: [UNRECOGNIZED DRUG - OTHER] PO SCH (10:07)
[2016-08-24] MEDS: Tobramycin 0.3% OPHT SOLN OU SCH ×3 (10:08→17:54)
--- NOTE | 2016-08-24 13:36 | PN ---
DATE: 08/24/2016 The patient is 86 years old, seen and examined lying in bed, comfortable. She states that she feels tired after she comes from therapy. VITAL SIGNS: She is afebrile, pulse 69, respirations 20, blood pressure 142/72. LUNGS: Bilateral good airflow. No rhonchi or crackle. HEART: S1, S2 audible. No murmur. ABDOMEN: Soft, nontender, no rebound, no guarding. NEUROLOGICALLY: She is awake and alert, communicative. Ambulatory. ASSESSMENT AND PLAN: 1. Community-acquired pneumonia. 2. Deconditioning. 3. Difficulty walking. 4. Hypertension. 5. Mild dementia. 6. History of hypertension and coronary artery disease. PLAN: The patient is currently stable, doing well. Eating and tolerating. Her antibiotic has been switched to p.o., and she will be discharged home soon. Jean-Claude Rosas MD cc: [phone] TT: 08/24/2016 13:36:02 Confirmation # [id number] Dictation # [id number] hanh
[2016-08-24] MEDS: Latanoprost 2.5 ml Opht Soln OD SCH (22:58)
[2016-08-25] MEDS: Albuterol-Ipratrop 3 mg / 0.5 (3 ml) UD IH SCH ×3 (01:42→13:09)
[2016-08-25] MEDS: Pantoprazole 40 mg EC Tab PO SCH (06:05)
[2016-08-25] MEDS: Enoxaparin 40 mg Syringe SC SCH (06:06)
[2016-08-25] MEDS: [UNRECOGNIZED DRUG - OTHER] PO SCH (09:51)
[2016-08-25] MEDS: MESALAMINE PO SCH (09:51)
[2016-08-25] MEDS: Tobramycin 0.3% OPHT SOLN OU SCH ×3 (09:53→17:19)
--- NOTE | 2016-08-25 19:51 | PN ---
DATE: 08/25/2016 The patient is an 86-year-old, seen and examined, doing well. Complained of feeling very weak, tired , participating in therapy. PHYSICAL EXAMINATION: VITAL SIGNS: She is afebrile, pulse 69, respirations 20, blood pressure 107/72. LUNGS: Bilateral fair airflow, no rhonchi or crackle. HEART: S1, S2 audible. No murmur. ABDOMEN: Soft, nontender, no rebound, no guarding. NEUROLOGIC: She is awake and alert, communicative. Ambulates with a walker. ASSESSMENT: 1. Deconditioning and difficulty walking. 2. Fatigue, rule out anemia versus hypothyroidism. 3. Chronic obstructive pulmonary disease. 4. Status post community-acquired pneumonia. PLAN: We will discontinue her nebulizer treatment. Continue on aspirin 81 daily. Continue her on i sosorbide. Continue her on Lexapro. She is pretty ambulatory. I will discontinue Lovenox and if sh e remains stable, she has discharge plan in a.m. Jean-Claude Rosas MD cc: [phone] TT: 08/25/2016 19:50:38 Confirmation # [id number] Dictation # [id number] en
[2016-08-25] MEDS: Latanoprost 2.5 ml Opht Soln OD SCH (22:33)
[2016-08-26] MEDS: Pantoprazole 40 mg EC Tab PO SCH (05:15)
[2016-08-26 07:30] LABS: ALKALINE PHOSPHATASE 63 U/L (38-133); ALT/SGPT 50 U/L (7-56); AST/SGOT 37 U/L (15-39); BILIRUBIN,TOTAL 0.5 mg/dL (0.2-1.3); BLOOD UREA NITROGEN 15 mg/dL (7-21); CALCIUM 8.2 mg/dL (8.4-10.5); CARBON DIOXIDE 29 mmol/L (21-33); CHLORIDE 105 mmol/L (98-107); GFR AFRICAN-AMERICAN > 60; GLUCOSE,RANDOM 78 mg/dL (70-110); MAGNESIUM 1.6 mg/dL (1.7-2.2); PHOSPHOROUS 3.5 mg/dL (2.5-4.5); SODIUM 141 mmol/L (132-148); TOTAL PROTEIN 5.6 g/dL (5.8-8.3)
[2016-08-26 07:41] LABS: FREE T4 1.76 ng/dL (0.78-2.19)
[2016-08-26 07:54] LABS: THYROID STIMULATING HORMONE 3.43 mIU/mL (0.46-4.68)
[2016-08-26] MEDS: MESALAMINE PO SCH (10:10)
[2016-08-26] MEDS: [UNRECOGNIZED DRUG - OTHER] PO SCH (10:10)
[2016-08-26] MEDS: Tobramycin 0.3% OPHT SOLN OU SCH ×3 (10:11→18:31)
[2016-08-26] MEDS ORDERED: Potassium Chloride 20 mEq/15 ml LIQ UD PO STA (10:28)
[2016-08-26] MEDS ORDERED: Potassium Chloride 40 mEq/30 ml LIQ UD PO STA (11:01)
[2016-08-26] MEDS ORDERED: Iron Sucrose 100 mg/5 ml Inj (RENAL) IVP SCH (12:15)
--- NOTE | 2016-08-26 12:51 | PN ---
DATE: 08/26/2016 SUBJECTIVE: The patient is an 86-year-old, seen and examined, complaining of feeling tired and fatig ued, moreso after walking. Otherwise, doing well, eating and tolerating, participating in therapy. PHYSICAL EXAMINATION: VITAL SIGNS: She is afebrile, pulse 58, respirations 19, blood pressure 119/68. LUNGS: Bilateral fair airflow, no rhonchi or crackle. HEART: S1, S2 audible. No murmur. ABDOMEN: Soft, nontender, no rebound, no guarding. NEUROLOGIC: The patient is awake and alert, communicative. LABORATORY: Her magnesium is 1.6, albumin 2.8, potassium is 3.0. ASSESSMENT: 1. Fatigue. 2. Electrolyte imbalance. 3. Hypomagnesemia. 4. Hypertension. 5. Chronic obstructive pulmonary disease. 6. Resolving bronchitis. PLAN: She will be given 40 mEq two doses, 4 hours apart. She will receive 1 Venofer today and 1 tomorrow. I will supplement her magnesium, then will reevaluate in a.m. If she remains stable, terrie arroyo will be discharged home in a.m. Jean-Claude Rosas MD cc: [phone] TT: 08/26/2016 12:50:34 Confirmation # [id number] Dictation # [id number] kiki
[2016-08-26 16:18] VITALS: O2SAT 96
[2016-08-26] MEDS: Latanoprost 2.5 ml Opht Soln OD SCH (22:45)
[2016-08-27] MEDS: Pantoprazole 40 mg EC Tab PO SCH (06:14)
[2016-08-27] MEDS: MESALAMINE PO SCH (09:35)
[2016-08-27] MEDS: [UNRECOGNIZED DRUG - OTHER] PO SCH (09:35)
[2016-08-27] MEDS: Tobramycin 0.3% OPHT SOLN OU SCH ×2 (09:37→13:25)
[2016-08-27 10:53] VITALS: PULSE 64; RESP 20; TEMP 98.4
[2016-08-27 11:47] VITALS: BP 111/56
--- NOTE | 2016-08-27 22:22 | DS ---
The patient is an 86-year-old, seen and examined, sitting in chair, comfortable, not in any distress. No fever, no chills, no nausea, vomiting, no diarrhea, no cough, no congestion, no diaphoresis. Flood s generalized weakness. Able to ambulate. PHYSICAL EXAMINATION: VITAL SIGNS: She is afebrile, pulse 64, respirations 20, blood pressure 111/56. LUNGS: Bilateral fair airflow, no rhonchi or crackle. HEART: S1, S2 audible. ABDOMEN: Soft, nontender, no rebound, no guarding. NEUROLOGIC: The patient is awake and alert, communicative. Ambulates with a walker. ASSESSMENT: 1. Status post community-acquired pneumonia. 2. History of chronic obstructive pulmonary disease. 3. Hypertension. 4. Coronary artery disease. 5. Electrolyte imbalance that has improved. 6. Resolved bronchitis. PLAN: The patient is being discharged today. She will resume her medication that she takes at home, including multivitamins, theophylline, omeprazole, she takes Lialda for her IBS. She is on Namzaric for her dementia. She takes Alta as needed. She is on ferrous sulfate, Lexapro, Lumigan eyedrop s. She will follow up with her PMD in a week or two. Jean-Claude Rosas MD cc: [phone] TT: 08/27/2016 22:22:10
== END 2016-08-27 15:06 | disposition home health service (06) | DRG 945 ==
LOC: TRCU 18:10
PROVIDERS: ADMIT Internal Medicine; ATTEND Internal Medicine
PROC: 3E03329 Introduction of Other Anti-infective into Peripheral Vein, Percutaneous Approach (ICD-10-PCS; 2016-08-19)
PROC: F07Z9FZ Gait Training/Functional Ambulation Treatment using Assistive, Adaptive, Supportive or Protective Equipment (ICD-10-PCS; principal; 2016-08-21)
PROC: F07Z8ZZ Transfer Training Treatment (ICD-10-PCS; 2016-08-21)
PROC: F0726YZ Therapeutic Exercise Treatment of Neurological System - Lower Back / Lower Extremity using Other Equipment (ICD-10-PCS; 2016-08-21)
PROC: F08Z2ZZ Grooming/Personal Hygiene Treatment (ICD-10-PCS; 2016-08-24)
PROC: F08Z3FZ Feeding/Eating Treatment using Assistive, Adaptive, Supportive or Protective Equipment (ICD-10-PCS; 2016-08-24)
DX: R53.83 Other fatigue (principal); J44.0 Chronic obstructive pulmonary disease with (acute) lower respiratory infection; J18.9 Pneumonia, unspecified organism; R26.2 Difficulty in walking, not elsewhere classified; F03.90 Unspecified dementia, unspecified severity, without behavioral disturbance, psychotic disturbance, mood disturbance, and anxiety; E83.42 Hypomagnesemia; I10 Essential (primary) hypertension; I25.10 Atherosclerotic heart disease of native coronary artery without angina pectoris; K29.70 Gastritis, unspecified, without bleeding; E78.5 Hyperlipidemia, unspecified; F32.9 Major depressive disorder, single episode, unspecified; K27.9 Peptic ulcer, site unspecified, unspecified as acute or chronic, without hemorrhage or perforation; Z79.2 Long term (current) use of antibiotics; Z79.82 Long term (current) use of aspirin; Z88.0 Allergy status to penicillin

== ENCOUNTER 2017-05-31 12:49 | Inpatient (IN) | payer MEDICARE ==
[2017-05-31] MEDS ORDERED: Succinylcholine 200 mg/10 ml Inj IV ONE (12:55)
[2017-05-31] MEDS ORDERED: Etomidate 20 mg/10ml Inj IV ONE (12:55)
[2017-05-31] MEDS ORDERED: Vancomycin 1gm in NS 250ml 1 GM/250 ML BAG IVPB STA (13:05)
[2017-05-31] MEDS ORDERED: Meropenem IV 1 gm in NS 50 ML IVPB STA (13:05)
--- NOTE | 2017-05-31 13:18 | ED PDOC ---
Arrival/HPI - General Chief Complaint: Altered Mental Status Time Seen by Provider: 05/31/17 13:03 - History of Present Illness Narrative History of Present Illness (Text): 05/31/17 13:03 A 86 year old female, whose past medical history includes Alzhemer Dementia, Ulcerative colitis, HTN, Coronary artery disease, ? COPD and depression, is brought in by ambulance presents to the emergency department for cardiac arrest. As per EMS, patient was found unresponsive about 45 minutes prior to arrival. They reported history of ACS and Dementia. They send she had slow breathing and was unresponsive so they started ventilating her. On her way to the hospital she lost her pulse so they started CPR. BLS so no meds were given. On arrival her finger stick was normal range. Pulseless, PEA, so CPR continued and stat Epi given. BP and HR stablized with palpable pulse. Sinus tachy on the monitory with frequent PVCs. Friend who lives with her arrived after cardiac arrest. She states that last night she was a little tired and weak in the legs. She's also had a cough for 2 days. No fever that she is aware of. As per friend she had a fall in the closet because her legs felt weak. She hit her head but no LOC. Today patient was complaining of a headache, cough and congestion. She started vomiting around 11am. Patient's family called 911 due to patient being unresponsive. PMD: Dr. Rosas Past Medical History - Provider Review Nursing Documentation Reviewed: Yes - Past History Past History: No Previous - Infectious Disease Hx of Infectious Diseases: None - Tetanus Immunization Tetanus Immunization: Unknown - Reproductive Menopause: Yes - Cardiac Hx Cardiac Disorders: Yes Hx Hypertension: Yes - Pulmonary Hx Chronic Obstructive Pulmonary Disease (COPD): Yes - Neurological HX Cerebrovascular Accident: No - HEENT Hx HEENT Disorder: Yes Hx Blind: No Hx Cataracts: Yes (right eye) Hx Deafness: No Hx Difficulty Chewing: No Hx Epistaxis: No Hx Glaucoma: Yes Hx Macular Degeneration: No - Renal Hx Renal Failure: No - Endocrine/Metabolic Hx Diabetes Mellitus Type 1: No Hx Diabetes Mellitus Type 2: No Hx Hypothyroidism: No - Hematological/Oncological Hx Blood Disorders: Yes Hx AIDS: No Hx Anemia: Yes Hx Cancer: No Hx Chemotherapy: No Hx Cirrhosis: No Hx Hepatitis A: No Hx Hepatitis B: No Hx Hepatitis C: No Hx Metastasis: No Hx Shingles: No Hx Unexplained Bleeding: Yes (GI bleed) - Integumentary Hx Dermatological Disorder: No Hx Basal Cell Carcinoma: No Hx Eczema: No Hx Melanoma: No Hx Psoriasis: No Hx Squamous Cell Carcinoma: No - Musculoskeletal/Rheumatological Hx Arthritis: No Hx Falls: Yes - Gastrointestinal Hx Gastrointestinal Disorders: Yes Hx Colostomy: No Hx Crohn's Disease: No Hx Diverticulitis: No Hx Gall Bladder Disease: No Hx Gastroesophageal Reflux: No Hx Gastrointestinal Ulcer: Yes (upper GI bleed) Hx Ileostomy: No Hx Liver Failure: No Hx Pancreatitis: No HX Swallowing Problems: No Other/Comment: esophagitis, ulecerative colitis - Genitourinary/Gynecological Hx Genitourinary Disorders: No Hx Hematuria: No Hx Incontinence: No Hx Prostate Problems: No Hx Reproductive Disorders: No Hx Sexually Transmitted Diseases: No Hx Urinary Tract Infection: No - Psychiatric Hx Psychophysiologic Disorder: Yes Hx Anxiety: Yes Hx Bipolar Disorder: No Hx Depression: Yes Hx Emotional Abuse: No Hx Hallucinations: No Hx Panic Disorder: No Hx Post Traumatic Stress Disorder: No Hx Psychosis: No Hx Physical Abuse: No Hx Schizophrenia: No Hx Sexual Abuse: No Hx Substance Use: No - Surgical History Hx Amputation: No Hx Appendectomy: No Hx Cholecystectomy: No Hx Gastric Bypass Surgery: No Hx Hysterectomy: No Hx Joint Replacement: No Hx Kidney Transplant: No Hx Liver Transplant: No Hx Mastectomy: No Hx Musculoskeletal Surgery: No Hx Open Heart Surgery: No Hx Orthopedic Surgery: No Hx Splenectomy: No Hx Valve Replacement: No - Anesthesia Hx Anesthesia Reactions: No Hx Malignant Hyperthermia: No - Suicidal Assessment Feels Threatened In Home Enviroment: No Family/Social History - Physician Review Nursing Documentation Reviewed: Yes Family/Social History: No Known Family HX Smoking Status: Former Smoker Hx Alcohol Use: No Hx Substance Use: No Allergies/Home Meds Allergies/Adverse Reactions: Allergies Penicillins Allergy (Verified 05/31/17 15:57) RASH Home Medications: Home Meds Medication Instructions Recorded Confirmed Escitalopram [Lexapro] 20 mg PO HS 02/14/14 05/31/17 Aspirin [[place] Aspirin] 81 mg PO HS 08/16/16 05/31/17 Atenolol [Tenormin] 50 mg PO QA 08/16/16 05/31/17 Atorvastatin Calcium 40 mg PO HS 08/16/16 05/31/17 Ferrous Fumarate/Ascorbic Acid 65 mg PO DAILY 08/16/16 05/31/17 [Ivanna-Sequels 65-25 mg Caplet] Fexofenadine HCl [AltaNf] 180 mg PO DAILY 08/16/16 05/31/17 Memantine HCl/Donepezil HCl 1 each PO DAILY 08/16/16 05/31/17 [Namzaric 28 mg-10 mg Capsule] Niacin (Inositol Niacinate) [Ra 500 mg PO HS 08/16/16 05/31/17 Niacin 500 mg Tablet] Omeprazole 40 mg PO DAILY 08/16/16 05/31/17 Dextromethorphan HBr/Quinidine 1 cap PO BID 05/31/17 05/31/17 [Nuedexta 20-10 mg Capsule] Isosorbide Mononitrate [Isosorbide 30 mg PO DAILY 05/31/17 05/31/17 Mononitrate ER] Mesalamine [Lialda] 4 tab PO QAM 05/31/17 05/31/17 l-Mefol/A-Cyst/Meb12/Algal Oil 1 tab PO DAILY 05/31/17 05/31/17 [Cerefolin Nac Caplet] Review of Systems - Review of Systems Systems not reviewed;Unavailable: Respiratory Distress Physical Exam Vital Signs Reviewed: Yes Vital Signs Temp Pulse Resp BP Pulse Ox 05/31/17 14:05 56 L 16 152/77 H 100 05/31/17 13:59 56 L 16 91/52 L 100 05/31/17 13:36 64 18 119/63 100 05/31/17 12:56 124 H 125/52 L 05/31/17 12:49 96.5 F L 129 H 18 125/52 L 94 L Temperature: Hypothermic Blood Pressure: Normal Pulse: Tachycardic Respiratory Rate: Mechanically Ventilated Appearance: Positive for: Ill-Appearing - Systems Exam Head: Present: Atraumatic Pupils: Present: PERRL (4mm), Sluggish Mouth: Present: Moist Mucous Membranes Nose (Internal): Present: Normal Inspection Neck: No: Meningeal Signs Respiratory/Chest: Present: Clear to Auscultation (Initially rhonchi b/l but after intubation she was clear to ausc b/l), Good Air Exchange Cardiovascular: Present: Tachycardic Abdomen: No: Tenderness Back: Present: Normal Inspection Upper Extremity: Present: Normal Inspection Lower Extremity: Present: Normal Inspection Neurological: No: Motor Func Grossly Intact, Normal Sensory Function Skin: Present: Cold Medical Decision Making ED Course and Treatment: 05/31/17 13:08 Impression: 86 year old female brought in by ambulance for respiratory distress , unresponsive and cardiac arrest Differential Diagnosis included but are not limited to: Respiratory Distress with Cardiac Arrest r/o Pneumonia r/o Influenza r/o Sepsis; Fall with Head trauma yesterday r/o ICH r/o fracture Plan: -- EKG -- Chest X-ray -- Head CT -- Cervical Spinal CT -- Pelvis X-Ray -- Labs -- Serology -- Arterial Blood Gas -- Venous Blood Gas -- Meropenum -- Vancomycin -- Urinalysis -- Blood Culture -- Urine Culture -- Reassess and disposition Prior Visits: Notes and results from previous visits were reviewed. Patient was last seen in the emergency department on 08/16/2016 for fever and generalized weakness. Patient was admitted. Progress Notes: 05/31/2017 12:59 EKG: Sinus tachycardia at 110 bpm with PVCs, ST depressions in anterior leads 05/31/2017 13:35 Code Sepsis called secondary to hypothermia, tachycardia, and elevated lactic acid. Broad spectrum antibiotics ordered. NS IVF already ordered at 100ml/hr. 05/31/2017 13:41 Repeat EKG: Sinus bradycardia at 65bpm with no ST elevations, nonspec ST changes 05/31/17 13:[address] Tejeda who will accept patient to the ICU. He recommended CT Angio and CT Abd/Pelvis. Case discussed with Dr. Dove who is covering for Dr. Rosas. PROCEDURE: INTUBATION Performed by the emergency provider Time: 12:49 Indication: Unresponsive, Respiratory distress Pre-oxygenation: [id number] Medications: Etomidate, Succylcholine. See MAR for details. ETT Size: 7.5 Confirmation: Cords directly visualized as tube passed, good bilateral breath sounds, positive CO2 detector color change, tube fogging, adequate chest rise, improving pulse oximetry reading, improved skin color, and absence of gastric sounds,. ETT Secured: The cuff was inflated and the tube was secured appropriately at a distance of 21 cm at the lip. Post-Procedure: There were no immediate complications. CXR Confirmation: Yes Report Date : 05/31/2017 14:21:17 Procedure: Chest X-ray Dictator : Saúl Saleh MD IMPRESSION: The left diaphragm is obscured by an infiltrate. The lungs are otherwise clear. The endotracheal tube is low at the opening of the right mainstem bronchus. This should be withdrawn 1.5 cm. NG tube in satisfactory position Respiratory therapist pulled back the ETT about 1.5 cm. 05/31/17 14:52 CT noted to have ICH. Dr. Tejeda made aware and recommended NeuroSx and Neurology. Both services were paged by Computer [employer]uler [employer]. CT Angio cancelled. CT Chest ordered. 05/31/17 15:[address] Carrillo, NeuroSurgery, who will stats that this is a very poor prognosis case and will review the case with the ICU [employer] Polisher Dr. Tejeda. Report Date : 05/31/2017 15:12:27 PROCEDURE: Radiographs of the pelvis. Dictator : Saúl Saleh MD IMPRESSION: Unremarkable single view of the pelvis Report Date : 05/31/2017 15:27:34 PROCEDURE: CT HEAD WITHOUT CONTRAST. Dictator : Saúl Saleh MD IMPRESSION: There is a large intraparenchymal bleed in the left hemisphere posteriorly. The bleed measures 4 x 6 cm in size with surrounding vasogenic edema. There is 2 cm of midline shift to the right. There is also loss of the basal cisterns and compression of the brainstem. Small hemorrhages are seen within the brainstem.There is also a small left-sided subdural hematoma measuring up to 10 mm in thickness. Findings were discussed with Dr. Parmar at 3:15 p.m. Report Date : 05/31/2017 15:30:34 PROCEDURE: CT Cervical Spine without contrast Dictator : Saúl Saleh MD IMPRESSION: No acute fracture 05/31/17 15:58 Case was discussed with Dr. Wong, Neurology, who will review CT studies but no interventions at this moment. I explained to her that patients family does not want intervention as per Dr. Tejeda. I spoke to Dr. Tejeda to let him know Neurology was called. Report Date : 05/31/2017 15:53:04 PROCEDURE: CT Chest, Abdomen and Pelvis without intravenous contrast Dictator : Sriram Ramsey MD IMPRESSION: 1. Cholelithiasis without CT evidence of acute cholecystitis. 2. Nonobstructing renal calculi bilaterally none larger than 5 mm. 3. Low lying endotracheal tube. Satisfactory position of nasogastric tube. 4. Dependent atelectasis at the lung bases. - Critical Care Critical Care Minutes: 60 minutes - Lab Interpretations Lab Results: 05/31/17 13:00 05/31/17 13:00 Lab Results 05/31/17 14:00: Blood Type A NEGATIVE, Antibody Screen Negative, BBK History Checked Patient has bt 05/31/17 13:44: Urine Color Yellow, Urine Appearance Sl cloudy, Urine pH 6.0, Ur Specific [place] >= 1.030, Urine Protein 100 H, Urine Glucose (UA) Negative, Urine Ketones Negative, Urine Blood Trace-intact H, Urine Nitrate Negative, Urine Bilirubin Negative, Urine Urobilinogen 0.2, Ur Leukocyte Esterase Negative , Urine RBC 2 - 5, Urine WBC 0 - 2, Ur Epithelial Cells 6 - 8, Urine Bacteria Many 05/31/17 13:40: Influenza Typ A,B (EIA) Negative for flu a/b 05/31/17 13:40: pCO2 36, pO2 309.0 H, HCO3 17.7 L, ABG pH 7.30 L, ABG Total CO2 18.8 L, ABG O2 Saturation 99.3 H, ABG Base Excess -7.9 L, ABG Potassium 2.8 L, Sodium 143.0, Chloride 116.0 H, Glucose 201 H, Lactate 1.4, Mechanical Rate 16, FiO2 100.0, Tidal Volume 400, PEEP 5, Arterial Blood Potassium 2.8 L 05/31/17 13:00: pO2 94 H, VBG pH 7.22 L, VBG pCO2 55.0, VBG HCO3 22.5, VBG Total CO2 24.2, VBG O2 Sat (Calc) 97.0 H, VBG Base Excess -5.8 L, VBG Potassium 3.7, Sodium 142.0, Chloride 109.0 H, Glucose 200 H, Lactate 2.7 H, FiO2 21.0, Venous Blood Potassium 3.7 05/31/17 13:00: Sodium 143, Chloride 109 H, Potassium 3.8, Carbon Dioxide 22, Anion Gap 16, BUN 16, Creatinine 0.8, Est GFR ( Amer) > 60, Est GFR (Non- Af Amer) > 60, Random Glucose 182 H, Calcium 9.0, Phosphorus 3.6, Magnesium 1.8 , Total Bilirubin 0.6, AST 46 H, ALT 45, Alkaline Phosphatase 106, Troponin I < 0.01 D, NT-Pro-B Natriuret Pep 889 H, Total Protein 6.5, Albumin 3.7, Globulin 2.8, Albumin/Globulin Ratio 1.3 05/31/17 13:00: PT 11.0, INR 0.96, APTT 30.8 05/31/17 13:00: WBC 12.8 H, RBC 3.37 L, Hgb 11.3 L, Hct 35.4 L, MCV 105.0, MCH 33.5, MCHC 31.9, RDW 13.2, Plt Count 267, MPV 9.9, Gran % 49.9 L, Lymph % (Auto ) 37.9 H, Person % (Auto) 7.8 H, Eos % (Auto) 3.9, Baso % (Auto) 0.5, Gran # 6.41 , Lymph # 4.9 H, Person # 1.0 H, Eos # 0.5, Baso # 0.06 - RAD Interpretation Radiology Orders: 05/31/17 13:01 CHEST PORTABLE [RAD] Stat 05/31/17 13:08 HEAD W/O CONTRAST [CT] Stat 05/31/17 13:33 CERVICAL SPINE W/O CONTRAST [CT] Stat PELVIS ONE VIEW [RAD] Stat - EKG Interpretation Interpreted by ED Physician: Yes Type: 12 lead EKG - Medication Orders Current Medication Orders: Sodium Chloride (Sodium Chloride 0.9%) 1,000 mls @ 100 mls/hr IV .Q10H ROBIN Last Admin: 05/31/17 14:23 Dose: 100 mls/hr eMAR Start Stop Document 05/31/17 14:23 SRE (Rec: 05/31/17 14:24 [id number] [id number]) Intravenous Solution Start Date 05/31/17 Start Time 14:15 End Date 05/31/17 Morphine Sulfate (Morphine) 4 mg IVP Q4H PRN PRN Reason: Agitation Last Admin: 05/31/17 17:25 Dose: 4 mg MAR Pain Assessment Document 05/31/17 17:25 MS (Rec: 05/31/17 17:25 [place] [facility] [id number] Pain Reassessment Is this a pain reassessment? No IVP Administration Document 05/31/17 17:25 MS (Rec: 05/31/17 17:25 MS [id number]) Charges for Administration # of IVP Administrations 1 Discontinued Medications Meropenem (Merrem Iv 1 Gm Premix) 50 mls @ 100 mls/hr IVPB STAT STA PRN Reason: Protocol Stop: 05/31/17 13:34 Last Admin: 05/31/17 13:48 Dose: 100 mls/hr eMAR Start Stop Document 05/31/17 13:48 LA (Rec: 05/31/17 14:00 LA [id number]) Intravenous Solution Start Date 05/31/17 Start Time 13:59 End Date 05/31/17 End time 14:29 Total Infusion Time 30 Vancomycin HCl (Vancomycin 1gm) 1 gm in 250 mls @ 167 mls/hr IVPB STAT STA PRN Reason: Protocol Stop: 05/31/17 14:34 Last Admin: 05/31/17 16:00 Dose: NIHSS Scale ([place]) Time Performed: 13:03 - How Severe is the Stoke Baseline Level of Consciousness: 3=Unresponsive LOC to Questions: 2=Neither correct LOC to commands: 2=Neither correct Best Gaze: 2=Forced deviation Visual: 3=Bilateral Facial: 3=Complete unilateral paralysis Motor Arm - Left: 4=No movement Motor Arm - Right: 4=No movement Motor Leg - Left: 4=No movement Motor Leg - Right: 4=No movement Limb Ataxia: 2=Present both Sensory: 2=Severe to total loss Best Language: 3=Mute Dysarthia: 2=Severe, near unintelligible or worse Extinction & Inattention (Neglect): 2=Profound neglect(does not recognize own hand or orients to one side) Score: 42 Risk Level: Severe Stroke Risk rTPA Inclusion/Exclusion - Refusal of Treatment Patient Refused Treatment: No - Inclusion Criteria for Altepase Patient is 18 years or Older: Yes The Clinical Diagnosis of Ischemic Stroke That is Causing a Potentially Disabling Neurological Deficit: Yes Time of Onset is Well Established to be Less Than 270 Minute Before Treatment Would Begin: No Risk/Benefit Discussed With Patient/Family Member Present: No - Exclusion Criteria for Altepase Evidence of an Intracranial Hemorrhage: Yes - Warning to TPA With Conditions Condition: Stroke Severity Too Severe (NIHSS greater than 22) Additional Condition (For 3-4.5 Hour Window): NIHSS Above 25 - Scribe Statement The provider has reviewed the documentation as recorded by the Yaakovibcruz Hanks Provider Scribe Attestation: All medical record entries made by the Scribe were at my direction and personally dictated by me. I have reviewed the chart and agree that the record accurately reflects my personal performance of the history, physical exam, medical decision making, and the department course for this patient. I have also personally directed, reviewed, and agree with the discharge instructions and disposition. Disposition/Present on Arrival - Present on Arrival Any Indicators Present on Arrival: No History of DVT/PE: No History of Uncontrolled Diabetes: No Urinary Catheter: No History of Decub. Ulcer: No History Surgical Site Infection Following: None - Disposition Have Diagnosis and Disposition been Completed?: Yes Diagnosis: Intracranial hemorrhage, Cardiac arrest, Respiratory distress Disposition: HOSPITALIZED Disposition Time: 13:45 Patient Plan: ICU Patient Problems: Current Active Problems Problem Status Onset Cardiac arrest Acute Intracranial hemorrhage Acute Respiratory distress Acute Condition: CRITICAL
[2017-05-31 13:29] LABS: VENOUS BLOOD GAS BASE EXCESS -5.8 mmol/L (0.0-2.0); VENOUS BLOOD GAS PO2 94 mm/Hg (30-55); VENOUS BLOOD PH 7.22 (7.32-7.43)
[2017-05-31 13:34] LABS: BASO # 0.06 K/mm3 (0.0-2.0); BASO % 0.5 % (0.0-3.0); EOS # 0.5 (0.0-0.7); EOS % 3.9 % (1.5-5.0); GRAN # 6.41 (1.4-6.5); GRAN % 49.9 % (50.0-68.0); HEMOGLOBIN 11.3 g/dL (12.0-16.0); LYMPH # 4.9 (1.2-3.4); LYMPH % 37.9 % (22.0-35.0); MEAN CORPUSCULAR HEMOGLOBIN 33.5 pg (25.0-35.0); MEAN CORPUSCULAR HGB CONC 31.9 g/dl (31.0-37.0); MEAN PLATELET VOLUME 9.9 fl (7.0-11.0); MONO % 7.8 % (1.0-6.0); RBC 3.37 10^6/uL (3.5-6.1); RED CELL DISTRIBUTION WIDTH 13.2 % (11.5-14.5); WHITE BLOOD COUNT 12.8 10^3/ul (4.5-11.0)
[2017-05-31 13:37] VITALS: TEMP 96.5; O2SAT 100
[2017-05-31 13:37] LABS: ALB/GLOB RATIO 1.3 (1.1-1.8); ALBUMIN 3.7 g/dL (3.0-4.8); ALT/SGPT 45 U/L (7-56); AST/SGOT 46 U/L (14-36); BLOOD UREA NITROGEN 16 mg/dL (7-21); GFR AFRICAN-AMERICAN > 60; GFR NON-AFRICAN AMERICAN > 60; MAGNESIUM 1.8 mg/dL (1.7-2.2)
[2017-05-31 13:38] LABS: INR 0.96 (0.93-1.08)
[2017-05-31 13:39] LABS: PARTIAL THROMBOPLASTIN TIME 30.8 Seconds (25.1-36.5)
[2017-05-31 13:45] LABS: ARTERIAL BLOOD GAS HCO3 17.7 mmol/L (21-28); ARTERIAL BLOOD GAS O2 SAT 99.3 % (95-98); ARTERIAL BLOOD GAS PCO2 36 mm/Hg (35-45); ARTERIAL BLOOD GAS TCO2 18.8 mmol.L (22-28)
[2017-05-31 13:48] LABS: B-TYPE NATRIURETIC PEPTIDE 889 pg/mL (0-450); TROPONIN I < 0.01 ng/mL
[2017-05-31 13:48] LABS: URINE BILIRUBIN NEGATIVE (NEGATIVE); URINE BLOOD TRACE-INTACT (NEGATIVE); URINE GLUCOSE (UA) NEGATIVE (NEGATIVE); URINE LEUKOCYTE ESTERASE NEGATIVE Leu/uL (NEGATIVE); URINE NITRATE NEGATIVE (NEGATIVE); URINE PROTEIN 100 mg/dL (<30 mg/dL); URINE UROBILINOGEN 0.2 E.U./dL (<1 E.U./dL)
[2017-05-31 13:55] LABS: URINE APPEARANCE SL CLOUDY (CLEAR); URINE COLOR YELLOW (YELLOW)
[2017-05-31 13:57] LABS: URINE WBC 0 - 2 /hpf (0-6)
[2017-05-31 13:58] LABS: URINE BACTERIA MANY (NEG)
[2017-05-31] MEDS ORDERED: Iodixanol 320 MG/ML 100 ML BOTTLE IV ONE (14:12)
[2017-05-31] MEDS ORDERED: Sodium Chloride 0.9% 1,000 ML IV SCH (14:15)
--- NOTE | 2017-05-31 14:23 | RAD ---
HISTORY: intubated COMPARISON: 08/16/2016 FINDINGS: LUNGS: The left diaphragm is obscured by an infiltrate. The lungs are otherwise clear. The endotracheal tube is low at the opening of the right mainstem bronchus. This should be withdrawn 1.5 cm. NG tube in satisfactory position PLEURA: No significant pleural effusion identified, no pneumothorax apparent. CARDIOVASCULAR: Normal. OSSEOUS STRUCTURES: No significant abnormalities. VISUALIZED UPPER ABDOMEN: Normal. OTHER FINDINGS: Findings were discussed with Dr. Parmar IMPRESSION: The left diaphragm is obscured by an infiltrate. The lungs are otherwise clear. The endotracheal tube is low at the opening of the right mainstem bronchus. This should be withdrawn 1.5 cm. NG tube in satisfactory position
--- NOTE | 2017-05-31 15:13 | RAD ---
PROCEDURE: Radiographs of the pelvis. HISTORY: fall r/o fx COMPARISON: None. FINDINGS: BONES: Pelvic Bones: Unremarkable. Hips: Grossly unremarkable. JOINTS: Sacroiliac Joints: Unremarkable. Pubic Symphysis: Unremarkable. OTHER FINDINGS: None. IMPRESSION: Unremarkable single view of the pelvis
--- NOTE | 2017-05-31 15:15 | CP.PCM.PN ---
Subjective - Date & Time of Evaluation Date of Evaluation: 05/31/17 Time of Evaluation: 15:11 - Subjective Subjective: 86 yo female admitted s/p massive Left ICH with SDH Massive shift present Pt comatose fixed pupils This is a catastrophic cerebral event Highly doubt that even with aggressive surgical intervention she will ever regain a cognitive state other than vegetative Based on this and the fact she has a living will that precludes any agressive treatment of the condition is "irreversible" I do not recommend surgery and suggest supportive therapy. Objective - Vital Signs/Intake and Output Vital Signs (last 24 hours): Temp Pulse Resp BP Pulse Ox 96.5 F L 64 18 119/63 100 05/31/17 12:49 05/31/17 13:36 05/31/17 13:36 05/31/17 13:36 05/31/17 13:36 - Medications Medications: Current Medications Sodium Chloride (Sodium Chloride 0.9%) 1,000 mls @ 100 mls/hr IV .Q10H ROBIN Last Admin: 05/31/17 14:23 Dose: 100 mls/hr - Labs Labs: PT 11.0 SECONDS (9.4-12.5) 05/31/17 13:00 INR 0.96 (0.93-1.08) 05/31/17 13:00 APTT 30.8 Seconds (25.1-36.5) 05/31/17 13:00
[2017-05-31 15:18] VITALS: BP 171/97; PULSE 72; RESP 18
--- NOTE | 2017-05-31 15:29 | CT ---
PROCEDURE: CT HEAD WITHOUT CONTRAST. HISTORY: altered mental status s/p cardiac arrest COMPARISON: None available. TECHNIQUE: Axial computed tomography images were obtained through the head/brain without intravenous contrast. Radiation dose: Total exam DLP = 934 mGy-cm. This CT exam was performed using one or more of the following dose reduction techniques: Automated exposure control, adjustment of the mA and/or kV according to patient size, and/or use of iterative reconstruction technique. FINDINGS: HEMORRHAGE: There is a large intraparenchymal bleed in the left hemisphere posteriorly. The bleed measures 4 x 6 cm in size with surrounding vasogenic edema. There is 2 cm of midline shift to the right. There is also loss of the basal cisterns and compression of the brainstem. 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 . CALVARIUM: Unremarkable. PARANASAL SINUSES: Unremarkable as visualized. No significant inflammatory changes. MASTOID AIR CELLS: Unremarkable as visualized. No inflammatory changes. OTHER FINDINGS: Findings were discussed with Dr. Parmar at 3:15 p.m. IMPRESSION: There is a large intraparenchymal bleed in the left hemisphere posteriorly. The bleed measures 4 x 6 cm in size with surrounding vasogenic edema. There is 2 cm of midline shift to the right. There is also loss of the basal cisterns and compression of the brainstem. Small hemorrhages are seen within the brainstem.There is also a small left-sided subdural hematoma measuring up to 10 mm in thickness
--- NOTE | 2017-05-31 15:32 | CT ---
PROCEDURE: CT Cervical Spine without contrast HISTORY: Fall, rule out fracture COMPARISON: None available. TECHNIQUE: Axial computed tomography images were obtained of the cervical spine without the use of intravenous contrast. Coronal and sagittal reformatted images were created and reviewed. Radiation dose: Total exam DLP = 465 mGy-cm. This CT exam was performed using one or more of the following dose reduction techniques: Automated exposure control, adjustment of the mA and/or kV according to patient size, and/or use of iterative reconstruction technique. FINDINGS: VERTEBRAE: No fracture. Normal alignment. No destructive bony lesion. DISCS/SPINAL CANAL/NEURAL FORAMINA: No significant central canal or neural foraminal stenosis. Discs heights are grossly preserved. PARASPINAL SOFT TISSUES: Unremarkable. OTHER FINDINGS: As reported on the head CT there is a large hemorrhage in the left hemisphere with associated mass effect and compression of the brainstem IMPRESSION: No acute fracture
--- NOTE | 2017-05-31 15:44 | CP.PCM.CON ---
History of Present Illness - History of Present Illness History of Present Illness: CRITICAL CARE CONSULT NOTE HPI Patient is 86yo female with PMhx of Dementia, UC, HTN, CAD, brought in with AMS. As per the friend Dao Parks, patient was complaining of [place], then became unresponsive, apneic. EMS arrived started ventilating/bagging, then patient lost pulse, PEA arrest, 30-45minutes CPR, ROSC regained. 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 Intubated in the ER. Patient has advanced directives on paper stating clearly that if her condition was irreversible she would not have wanted life prolonging procedures, sustaining measures such as artificial feeding, IV hydration, CPR. As per HCP Stephanie Flores, patient to be DNR. More family members want to come in, before possible terminal extubation. PMHx as above PSHx as above Allergies PCN Meds as per EMR Review of Systems - Review of Systems Review of Systems: as per HPI Past Patient History - Infectious Disease Hx of Infectious Diseases: None - Tetanus Immunizations Tetanus Immunization: Unknown - Past Medical History & Family History Past Medical History?: Yes - Past Social History Smoking Status: Former Smoker - CARDIAC Hx Cardiac Disorders: Yes Hx Hypertension: Yes - PULMONARY Hx Chronic Obstructive Pulmonary Disease (COPD): Yes - NEUROLOGICAL HX Cerebrovascular Accident: No - HEENT Hx HEENT Problems: Yes Hx Blind: No Hx Cataracts: Yes (right eye) Hx Deafness: No Hx Difficulty Chewing: No Hx Epistaxis: No Hx Glaucoma: Yes Hx Macular Degeneration: No - RENAL Hx Renal Failure: No - ENDOCRINE/METABOLIC Hx Diabetes Mellitus Type 1: No Hx Diabetes Mellitus Type 2: No Hx Hypothyroidism: No - HEMATOLOGICAL/ONCOLOGICAL Hx Blood Disorders: Yes Hx AIDS: No Hx Anemia: Yes Hx Cancer: No Hx Chemotherapy: No Hx Cirrhosis: No Hx Hepatitis A: No Hx Hepatitis B: No Hx Hepatitis C: No Hx Metastesis: No Hx Shingles: No Hx Unexplained Bleeding: Yes (GI bleed) - INTEGUMENTARY Hx Dermatological Problems: No Hx Basil Cell: No Hx Eczema: No Hx Melanoma: No Hx Psoriasis: No Hx Squamous Cell: No - MUSCULOSKELETAL/RHEUMATOLOGICAL Hx Arthritis: No Hx Falls: Yes - GASTROINTESTINAL Hx Gastrointestinal Disorders: Yes Hx Colostomy: No Hx Crohn's Disease: No Hx Diverticulitis: No Hx Gall Bladder Disease: No Hx Gastroesophageal Reflux: No Hx Ileostomy: No Hx Liver Failure: No Hx Pancreatitis: No HX Swallowing Problems: No Other/Comment: esophagitis, ulecerative colitis - GENITOURINARY/GYNECOLOGICAL Hx Genitourinary Disorders: No Hx Hematuria: No Hx Incontinence: No Hx Reproductive Disorders: No Hx Sexually Transmitted Disorders: No Hx Urinary Tract Infection: No - PSYCHIATRIC Hx Psychophysiologic Disorder: Yes Hx Anxiety: Yes Hx Bipolar Disorder: No Hx Depression: Yes Hx Emotional Abuse: No Hx Hallucinations: No Hx Panic Symptoms: No Hx Post Traumatic Stress Disorder: No Hx Psychosis: No Hx Physical Abuse: No Hx Schizophrenia: No Hx Sexual Abuse: No Hx Substance Use: No - SURGICAL HISTORY Hx Amputation: No Hx Appendectomy: No Hx Cholecystectomy: No Hx Gastric Bypass Surgery: No Hx Hysterectomy: No Hx Joint Replacement: No Hx Kidney Transplant: No Hx Liver Transplant: No Hx Mastectomy: No Hx Musculoskeletal Surgery: No Hx Open Heart Surgery: No Hx Orthopedic Surgery: No Hx Splenectomy: No Hx Valve Replacement: No - ANESTHESIA Hx Anesthesia Reactions: No Hx Malignant Hyperthermia: No Meds Allergies/Adverse Reactions: Allergies Allergy/AdvReac Type Severity Reaction Status Date / Time Penicillins Allergy RASH Verified 05/31/17 13:00 - Medications Medications: Current Medications Sodium Chloride (Sodium Chloride 0.9%) 1,000 mls @ 100 mls/hr IV .Q10H ROBIN Last Admin: 05/31/17 14:23 Dose: 100 mls/hr Physical Exam - Constitutional Appears: No Acute Distress - Head Exam Head Exam: NORMAL INSPECTION - Eye Exam Pupil Exam: Fixed - ENT Exam ENT Exam: Mucous Membranes Moist - Respiratory Exam Respiratory Exam: Clear to Auscultation Bilateral, NORMAL BREATHING PATTERN - Cardiovascular Exam Cardiovascular Exam: REGULAR RHYTHM, +S1, +S2 - GI/Abdominal Exam GI & Abdominal Exam: Normal Bowel Sounds, Soft - Extremities Exam Extremities exam: Positive for: normal inspection - Neurological Exam Additional comments: no corneal reflex, does not overebreath the ventilator (paralyzed) +Gag reflex Results - Vital Signs Recent Vital Signs: Last Vital Signs Temp 96.5 F L 05/31/17 12:49 Pulse 72 05/31/17 14:30 Resp 18 05/31/17 14:30 BP 171/97 H 05/31/17 14:30 Pulse Ox 100 05/31/17 14:30 - Labs Result Diagrams: 05/31/17 13:00 05/31/17 13:00 - Imaging and Cardiology CT scan - head Status: Image reviewed by me Assessment & Plan - Assessment and Plan (Free Text) Assessment: 86yo female a/w catastrophic ICH ICH with mass effect HTN emergency Dementia - currently hypertensive, intubated, off sedation (paralyzed for intubation) - Neuro exam with NO corneal, does not over breath the ventilator, no response to painful/noxious stimuli, positive gag reflex - living will, advanced directives supplied by family, patient would not have wanted any aggressive measures if she has no meaningful recovery such as in this case - CT Brain with large L ICH, with mass effect - family wants palliative measures to be taken place, DNR, comfort measures, will await for more family members to arrive - palliative care consult - BP control - Morphine PRN - DNR - Extremely poor prognosis, palliative measures to be taken place critical care time 45 minutes
--- NOTE | 2017-05-31 15:54 | CT ---
PROCEDURE: CT Chest, Abdomen and Pelvis without intravenous contrast HISTORY: sepsis COMPARISON: 08/16/2016 CT thorax TECHNIQUE: Radiation dose: Total exam DLP = 790.37 mGy-cm. This CT exam was performed using one or more of the following dose reduction techniques: Automated exposure control, adjustment of the mA and/or kV according to patient size, and/or use of iterative reconstruction technique. FINDINGS: CT CHEST WITHOUT CONTRAST: LUNGS: Dependent atelectasis at both bases. Right upper lobe infiltrate identified previously has resolved. MEDIASTINUM: Unremarkable. Normal caliber aorta and pulmonary arterial trunk. Normal size heart. LYMPH NODES: Unremarkable. PLEURA: Unremarkable. No pneumothorax. No pleural fluid. BONES: Unremarkable. OTHER FINDINGS: Nasogastric tube courses through the esophagus. Endotracheal tube tip in the proximal right mainstem bronchus. For optimal placement this should be retracted between 3- 5 cm. Well-circumscribed mass medial aspect right breast 1.9 x 81.0 cm similar to that seen previously. CT ABDOMEN AND PELVIS: LIVER: Unremarkable. No gross lesion or ductal dilatation. GALLBLADDER AND BILE DUCTS: Cholelithiasis without CT evidence of acute cholecystitis. The gallbladder is distended. PANCREAS: Unremarkable. No gross lesion or ductal dilatation. SPLEEN: Unremarkable. ADRENALS: Unremarkable. No mass. KIDNEYS AND URETERS: Bilateral nonobstructing calculi none larger than 4 mm. . No hydronephrosis. No solid mass. Incidental finding(s): Simple cyst lower pole right kidney 2.6 cm. VASCULATURE: Unremarkable. No aortic aneurysm. BOWEL: Constipation without fecal impaction or obstruction. Nasogastric tube in satisfactory position in a decompressed stomach. APPENDIX: Normal appendix. PERITONEUM: Unremarkable. No free fluid. No free air. LYMPH NODES: Unremarkable. No enlarged lymph nodes. BLADDER: Baeza catheter in a decompressed and otherwise unremarkable urinary bladder. Incidental finding(s): REPRODUCTIVE: Unremarkable. BONES: No acute fracture. Multilevel degenerative change primarily affecting lower lumbar and upper sacral region. OTHER FINDINGS: None. IMPRESSION: 1. Cholelithiasis without CT evidence of acute cholecystitis. 2. Nonobstructing renal calculi bilaterally none larger than 5 mm. 3. Low lying endotracheal tube. Satisfactory position of nasogastric tube. 4. Dependent atelectasis at the lung bases. Additional benign and/or incidental findings described above.
--- NOTE | 2017-05-31 16:33 | PCM.SEPTIC ---
Sepsis Progress Note - Reassessment Type Date of Evaluation: 05/31/17 Time of Evaluation: 16:33 Reassessment Type: Non-invasive reassessment - Non Invasive Reassessment Were the most recent vital sign reviewed: Yes Vital Sign (Latest): Temp Pulse Resp BP Pulse Ox 96.5 F L 72 18 171/97 H 100 05/31/17 12:49 05/31/17 14:30 05/31/17 14:30 05/31/17 14:30 05/31/17 14:30 Cardiovascular: Yes: Tachycardia. No: Irregularly Irregular Respiratory: Yes: Decreased Breath Sounds, Other (intubated, breathing at ventilator rate) Capillary Refill: Normal (Less than 2 sec) Pulses: Normal Radial, Decreased Dorsalis Pedis, Absent Posterior Tibialis Skin: Normal Color, Warm (likely due to being under a joe-hugger), Dry
[2017-05-31] MEDS ORDERED: Morphine 4 mg/ml ISec IVP PRN (17:07)
--- NOTE | 2017-05-31 17:33 | CP.PCM.PN ---
Subjective - Date & Time of Evaluation Date of Evaluation: 05/31/17 Time of Evaluation: 17:31 - Subjective Subjective: Patient's HCP Stephanie Flores at bedside, requesting that the healthcare staff abide by the persons wishes, and terminally extubate the patient. Will terminally extubate patient and place on morphine drip. DNR/DNI, terminally extubate, morphine drip. Support provided to the family. Objective - Vital Signs/Intake and Output Vital Signs (last 24 hours): Temp Pulse Resp BP Pulse Ox 96.5 F L 72 18 171/97 H 100 05/31/17 12:49 05/31/17 14:30 05/31/17 14:30 05/31/17 14:30 05/31/17 14:30 - Medications Medications: Current Medications Sodium Chloride (Sodium Chloride 0.9%) 1,000 mls @ 100 mls/hr IV .Q10H ROBIN Last Admin: 05/31/17 14:23 Dose: 100 mls/hr Morphine Sulfate (Morphine) 4 mg IVP Q4H PRN PRN Reason: Agitation Last Admin: 05/31/17 17:25 Dose: 4 mg - Labs Labs: PT 11.0 SECONDS (9.4-12.5) 05/31/17 13:00 INR 0.96 (0.93-1.08) 05/31/17 13:00 APTT 30.8 Seconds (25.1-36.5) 05/31/17 13:00
[2017-05-31 18:11] VITALS: BMI 27.1
[2017-05-31] MEDS ORDERED: Pneumococcal 23-Valent Vaccine IM ONE (18:11)
[2017-05-31] MEDS ORDERED: Influenza Vaccine 60 mcg/0.5 mL SYR (4YR UP) IM ONE (18:11)
--- NOTE | 2017-05-31 18:16 | CP.PCM.PN ---
Subjective - Date & Time of Evaluation Date of Evaluation: 05/31/17 Time of Evaluation: 18:15 - Subjective Subjective: Called by RN for asystole. Asystole on the monitor, no carotid pulses, no femoral pulses, no breath sounds. Patient pronounced at 611pm. Family at the bedside. Objective - Vital Signs/Intake and Output Vital Signs (last 24 hours): Temp Pulse Resp BP Pulse Ox 96.5 F L 72 18 171/97 H 100 05/31/17 13:02 05/31/17 14:30 05/31/17 14:30 05/31/17 14:30 05/31/17 14:30 - Medications Medications: Current Medications Sodium Chloride (Sodium Chloride 0.9%) 1,000 mls @ 100 mls/hr IV .Q10H ROBIN Last Admin: 05/31/17 14:23 Dose: 100 mls/hr Morphine Sulfate (Morphine) 4 mg IVP Q4H PRN PRN Reason: Agitation Last Admin: 05/31/17 17:25 Dose: 4 mg - Labs Labs: PT 11.0 SECONDS (9.4-12.5) 05/31/17 13:00 INR 0.96 (0.93-1.08) 05/31/17 13:00 APTT 30.8 Seconds (25.1-36.5) 05/31/17 13:00
--- NOTE | 2017-05-31 21:54 | CARD ---
APPROVED REPORT EKG Measurement Heart [id number] [id number] <Conclusion> Normal sinus rhythm with sinus arrhythmia Nonspecific ST and T wave abnormality Prolonged QT Abnormal ECG
--- NOTE | 2017-05-31 22:01 | CARD ---
APPROVED REPORT EKG Measurement Heart [id number] [place] [id number] <Conclusion> Sinus rhythm with PVCs A run of A Fib with aberrancy ST depression, consider subendocardial injury or digitalis effect Nonspecific T wave abnormality Abnormal ECG
== END 2017-05-31 18:11 | DRG 82 ==
LOC: ED 12:49 → OBSVTOIN 14:03 → ERH 14:03 → ICU 15:17
PROVIDERS: ADMIT Internal Medicine Nephrology; ATTEND Internal Medicine Nephrology
PROC: 0BH17EZ Insertion of Endotracheal Airway into Trachea, Via Natural or Artificial Opening (ICD-10-PCS; principal; 2017-05-31)
PROC: 5A1935Z Respiratory Ventilation, Less than 24 Consecutive Hours (ICD-10-PCS; 2017-05-31)
DX: S06.5X9A Traumatic subdural hemorrhage with loss of consciousness of unspecified duration, initial encounter (principal); G93.5 Compression of brain; G93.6 Cerebral edema; I16.1 Hypertensive emergency; J98.11 Atelectasis; G30.9 Alzheimer's disease, unspecified; F02.80 Dementia in other diseases classified elsewhere, unspecified severity, without behavioral disturbance, psychotic disturbance, mood disturbance, and anxiety; S06.2X9A Diffuse traumatic brain injury with loss of consciousness of unspecified duration, initial encounter; I46.9 Cardiac arrest, cause unspecified; I10 Essential (primary) hypertension; H40.9 Unspecified glaucoma; I25.10 Atherosclerotic heart disease of native coronary artery without angina pectoris; I49.3 Ventricular premature depolarization; J44.9 Chronic obstructive pulmonary disease, unspecified; K80.20 Calculus of gallbladder without cholecystitis without obstruction; R40.20 Unspecified coma; W18.30XA Fall on same level, unspecified, initial encounter; Y93.9 Activity, unspecified; Y92.008 Other place in unspecified non-institutional (private) residence as the place of occurrence of the external cause; Z66 Do not resuscitate; Z79.82 Long term (current) use of aspirin; Z79.899 Other long term (current) drug therapy; Z87.11 Personal history of peptic ulcer disease; Z87.891 Personal history of nicotine dependence; Z88.0 Allergy status to penicillin; D64.9 Anemia, unspecified; R00.1 Bradycardia, unspecified